=== PATIENT | female | born 1935 | race Caucasian/White ===

== ENCOUNTER 2021-10-31 10:45 | Outpatient (RCR) | payer MEDICARE, MEDICAID, SELFPAY ==
[2021-10-10 10:04] VITALS: BP 125/43; PULSE 55; TEMP 35.8; BMI 33.8
--- NOTE | 2021-10-10 14:36 | HP.PCM_ITS ---
History of Present Illness Date of Service: 10/10/21 Chief Complaint: Puncture wound, left pretibial area History of Wound: This is an 86-year-old obese female with multiple pre-existing medical problems. Approximately 1 month ago, the patient suffered a traumatic injury on the left pretibial area as result of impacting her rocking chair on September 10, 2021. She sustained a wound on the left pretibial area, and presented to the emergency department at [facility] in [place], [place]. In the emergency room, sutures were placed, and the patient was discharged. Her course thereafter has been somewhat fraught with complications. Approximately 2 weeks following her injury, the traumatic wound dehisced. The initial sutures which had been placed were absorbable. The patient has developed cellulitis in the area and has been treated with 2 courses of oral antibiotics, including doxycycline and cephalexin. She is also spent 2 days in the hospital in [place] in treatment for her cellulitis, with MRSA having been identified. The patient sleeps flat at night. However, during the daytime she is not very active. She does not ambulate liberally, requiring a walker for mobility. She spends a great deal of each day sitting idly. She experiences daily swelling in her lower extremities, which is most pronounced late in the day. [facility] Medical History (Updated 10/10/21 @ 14:[address] Mina Richey MD) Carotid stenosis Chronic renal insufficiency, stage IV (severe) Cirrhosis COPD (chronic obstructive pulmonary disease) Coronary artery disease Debility Dependent edema Limited mobility Obesity (BMI 30.0-34.9) Osteopenia determined by x-ray Puncture wound of left lower extremity Secondary hyperparathyroidism Tonsillectomy planned Tubal ligation evaluation Home Medications All Day Allergy (cetirizine) 10 mg PO DAILY 06/09/14 [History Last Taken Unknown] Augmented Betamethasone Lotion 1 applicatio TOPICAL DAILY 06/09/14 [History Last Taken Unknown] bupropion HCl 450 mg PO DAILY 06/09/14 [History Last Taken Unknown] cefuroxime axetil 250 mg PO BID 06/09/14 [History Last Taken Unknown] cholecalciferol (vitamin D3) 2,000 unit PO DAILY 06/09/14 [History Last Taken U nknown] clonazepam 0.5 mg PO Q8H PRN PRN 06/09/14 [History Last Taken Unknown] fluticasone propion-salmeterol [Advair Diskus] 1 puff INHALATION BID 06/09/14 [History Last Taken 06/22/14 06:30] folic acid 1 mg PO DAILY@0800 06/09/14 [History Last Taken Unknown] furosemide 40 mg PO DAILY 06/09/14 [History Last Taken Unknown] insulin glargine [Lantus Solostar U-100 Insulin] 38 units SUBCUT QHS 06/09/14 [History Last Taken Unknown] insulin glargine [Lantus Solostar U-100 Insulin] 42 units SUBCUT BREAKFAST 06/09/14 [History Last Taken Unknown] insulin lispro [Humalog U-100 Insulin] 2 - 30 unit SQ TID 06/09/14 [History Last Taken Unknown] losartan 100 mg PO DAILY 06/09/14 [History Last Taken Unknown] methotrexate sodium 7.5 mg PO FOSTER 06/09/14 [History Last Taken Unknown] metoprolol tartrate 25 mg PO DAILY 06/09/14 [History Last Taken 06/22/14 06:30] potassium chloride [Klor-Con M20] 20 meq PO BID 06/09/14 [History Last Taken Unknown] pravastatin 80 mg PO DAILY 06/09/14 [History Last Taken Unknown] zolpidem 5 mg PO QHS PRN 06/09/14 [History Last Taken Unknown] aspirin 81 mg PO DAILY@0800 #1 06/25/14 [Rx Last Taken 06/17/14 21:00] diphenhydramine HCl [Banophen] 50 mg PO Q6H PRN PRN #30 capsule 06/25/14 [Rx Last Taken Unknown] rivaroxaban [Xarelto] 10 mg PO DAILY@0600 #10 tablet 06/25/14 [Rx Last Taken Unknown] tramadol 50 mg PO Q4H PRN PRN #80 tablet 06/25/14 [Rx Last Taken Unknown] acetaminophen 650 mg tablet,extended release 650 mg PO Q12H 12/01/20 [History Last Taken Unknown] albuterol sulfate 2.5 mg INHALATION Q6H 12/01/20 [History Last Taken Unknown] docusate calcium 240 mg capsule 240 mg PO DAILY 12/01/20 [History Last Taken Unknown] flash glucose sensor #1 ea 12/01/20 [History Last Taken Unknown] montelukast 10 mg tablet 10 mg PO DAILY 12/01/20 [History Last Taken Unknown] nifedipine 60 mg tablet,extended release 60 mg PO DAILY 12/01/20 [History Last Taken Unknown] nystatin 100,000 unit/gram topical cream 1 applic TOPICAL BID 12/01/20 [History Last Taken Unknown] pantoprazole 20 mg PO DAILY 10/10/21 [History Last Taken Unknown] potassium bicarb and chloride [Pot Bicarb-Pot Chloride(25mEq)] ea 10/10/21 [History Last Taken Unknown] Allergy/AdvReac Type Severity Reaction Status Date / Time adhesive Allergy Rash Verified 12/01/20 13:51 iodine Allergy Swelling Verified 12/01/20 13:51 latex Allergy Rash Verified 12/01/20 13:51 hydrocodone bitartrate AdvReac Nausea Verified 12/01/20 13:51 [From Vicodin] metformin AdvReac Other Verified 12/01/20 13:51 morphine AdvReac Itching Verified 12/01/20 13:51 Sulfa (Sulfonamide AdvReac Nausea/Vom/ Verified 12/01/20 13:51 Antibiotics) Diarrhea Family History Other Asthma CVA (cerebral vascular accident) Colon cancer Diabetes Heart disease High cholesterol Hypertension Kidney disease Kidney stones Lupus Osteoporosis Seizures Skin cancer Thyroid disorder Ulcer Surgical History H/O knee surgery no surgical history (Patient has a history of bilateral knee replacement surgery, tonsillectomy, and tubal ligation.) Social History Smoking Status: Former smoker Vital Signs Vital Signs Vital Signs: 10/10/21 10:04 Temperature 96.4 F L Temperature Source Temporal Pulse Rate 55 L Blood Pressure 125/43 H Blood Pressure Mean 70 Blood Pressure Source Monitor Weight Weight: 191 lb Body Mass Index (BMI) 33.8 Physical Exam Const alert, oriented x3, no apparent distress and well nourished Constitutional Narrative: Patient appears obese. General Appearance: cooperative, comfortable, well kempt and well developed Orientation / Consciousness: awake, oriented to person, oriented to place and oriented to time HEENT normocephalic, head/scalp atraumatic and hearing grossly normal bilaterally Head and Scalp: normal to inspection, normocephalic and atraumatic External Ear: external ears normal Eyes PERRL and EOMs intact bilaterally General Eye: normal appearance of both eyes Resp normal respiratory effort, normal air movement, no retractions and no use of accessory muscles Effort and Inspection: able to speak in complete sentences Extremity no calf tenderness General Extremity: Negative for clubbing or cyanosis Skin Wound Narrative: Moderate swelling and edema are noted in the patient's lower extremities bilaterally. Additionally, inflammatory erythema is noted in the lower extremities bilaterally. The patient's traumatic wound is noted on the left pretibial area. Dimensions are documented elsewhere. There is a moderate amount of bioburden. Neuro oriented x3, CN's II-XII intact bilaterally and moves all extremities Sensorium / Orientation: awake, alert, oriented to person, oriented to place and oriented to time Psych Appearance: grossly normal and appropriate Attitude: calm Activity / Motor Behavior: appropriate eye contact Speech: normal speech Mood & Affect: euthymic mood Thought Process: normal thought process Thought Content: normal thought content Attention / Concentration: attention grossly intact Debridement Note Debridement Note Wound debrided: Left pretibial area Laterality: Left Type of Debridement: Excisional debridement Anesthesia Used: 5% Lidocaine Gel Depth: Down to and including healthy tissue and in the subcutaneous layer Percentage of wound debrided: 100 Instrument Used: 5mm curette Tissue Removed: Bioburden Severity: Fat Layer Exposed Amount of bleeding with debridement: Mild Bleeding Controlled with: Compression and gauze Patient tolerated procedure: Patient tolerated procedure well Post-Debridement Measurements and Additional Note: Post-Debridement Measurements/Treatment - Nurse 1 - General Ulcer Assessment Start: 10/10/21 08:19 Freq: Status: Active Protocol: [email or web address].[email or web address] Activity Type Activity Date Activity User E-Sign Co-Sign Detail Recorded Client Recorded Date Recorded By Document 10/10/21 10:04 DILLAN [id number] 10/10/21 10:25 DILLAN 10/10/21 10:04 - Today's Visit Information Type of service Initial Visit Arrival Mode Ambulatory, Walker Patient Identification Verified (Name & Yes ) Patient Requires Transmission-Based No Precautions Safety Precautions NA Finger Stick Blood Sugar(mg/dl) (if 131 indicated): Blood Sugar Stated by Patient Height and Weight Height 5 ft 3 in Weight 191 lb Weight in Pounds 191.0 lbs Weight Measurement Method Estimated by Patient Body Mass Index (BMI) 33.8 BMI Classification Obese BSA - Scott 1.90 Vital Signs Temperature (97.8 F-99.1 F) 96.4 F L Temperature Source Temporal Pulse Rate (60-100) 55 L Pulse Location Monitor Blood Pressure (90/60-120/80) 125/43 H Blood Pressure Mean 70 Source Monitor History Since Last Visit- (Skip if this is Patient's initial visit) Left Footwear Regular Shoe Right Footwear Regular Shoe Pain Scale: 0-10 Numeric Is Patient Pain Free? Yes WC - Nurse 1 - General Ulcer Measurement Start: 10/10/21 08:19 Freq: Status: Active Protocol: Activity Type Activity Date Activity User E-Sign Co-Sign Detail Recorded Client Recorded Date Recorded By Document 10/10/21 10:04 DILLAN [id number] 10/10/21 10:25 DILLAN 10/10/21 10:04 Wound Center Nurse 1 #1 Left mary -Current Size (cm) - Length 2.9 -Current Size (cm) - Width 1.7 -Current Size (cm) - Depth 1 -Total Square Cm 4.93 -Date of Last Picture (Recall this 10/10/21 field) -Photo Taken Yes -Epithelialization None Present -Tunneling No -Undermining/Tunneling No -Circular Undermining No -Exudate Amt Medium -Exudate Type Serosanguineous -Wound Margin Distinct, Outline Attached -Granulation Amt None Present (0 %) -Granulation Quality N/A -Slough/Fibrin Yes -Necrosis Amt Medium (34-66%) -Necrotic Tissue Type Adherent Slough -Structure Exposed N/A -Texture (Sis-wound Skin Appearance) Assessed, Localized Edema -Moisture (Sis-wound Skin Appearance) No Abnormality, Assessed -Color (Sis-wound Skin Appearance) Assessed, Erythema,Rubor -Temperature (Sis-wound Skin No Abnormality Appearance) (Pt Warm) -Tenderness on Palpation (Sis-wound No Skin Appearance) -Ulcer Cleansing Rinsed/ Irrigated with Saline -Foul Odor after Cleansing No -Anesthetic Used 5% Lidocaine Gel Right Calf (cm) 42 Right Ankle (cm) 24.5 Left Calf (cm) 40 Left Ankle (cm) 23.2 WC - Nurse 2 - General Ulcer CM Notes Start: 10/10/21 08:19 Freq: Status: Active Protocol: Activity Type Activity Date Activity User E-Sign Co-Sign Detail Recorded Client Recorded Date Recorded By Document 10/10/21 12:30 PL [id number] 10/10/21 12:31 PL 10/10/21 12:30 Wound Center Nurse 2 #1 Left mary -Time 10:50 -Correct Patient Yes -Correct Side, Site, Position Yes -Correct Procedure Yes -Procedure Performed Yes -Type of Procedure Debridement -Clinical Debridement Subcutaneous -Tissue Removed Subcutaneous -Post Debridement (cm) - Length 2.9 -Post Debridement (cm) - Width 1.7 -Post Debridement (cm) - Depth 1.0 -Total Square (Post) (cm) 4.93 -Area of Debridement (cm) - Length 2.9 -Area of Debridement (cm) - Width 1.7 -Total Square (Area) (cm) 4.93 -Tunneling No -Undermining/Tunneling No -Circular Undermining No -Wound/Ulcer Outcome Not Healed -Ulcer Cleansing Rinsed/ Irrigated with Saline -Foul Odor after Cleansing No -Bioengineered Tissue No -Bleeding Controlled with Pressure -Treatment Response Procedure Tolerated Well -Debridement - Subq, 1st 20sq cm Yes Pain Scale: 0-10 Numeric Is Patient Pain Free? Yes - Nurse 3 - General Ulcer D/C NN Start: 10/10/21 08:19 Freq: Status: Active Protocol: Activity Type Activity Date Activity User E-Sign Co-Sign Detail Recorded Client Recorded Date Recorded By Document 10/10/21 11:30 AK [id number] 10/10/21 11:32 AK 10/10/21 11:30 Wound Care Nurse 3 #1 Left mary -Ulcer Cleansing Rinsed/ Irrigated with Saline -Foul Odor after Cleansing No -Negative Pressure Wound Therapy N/A -Primary Dressing Applied Aquacel AG 4x4 -Primary Dressing Covered/Secured with Dry Gauze & Roll Gauze, Secured with Tape -Aquacel AG 4x4 1 Pain Scale: 0-10 Numeric Is Patient Pain Free? Yes WC - Visit Discharge Discharge Condition Stable Ambulatory Status Ambulatory, Walker Transportation Private Auto Accompanied by aid Medication Reconcilliation completed & Yes provided to patient/care provider Clinical Summary of Care Provided Yes Assessment/Plan Assessment/Plan (1) Puncture wound of left lower extremity: CODE(S): S81.832A - Puncture wound without foreign body, left lower leg, initial encounter (2) Diabetes mellitus, type II: CODE(S): E11.9 - Type 2 diabetes mellitus without complications (3) Dependent edema: CODE(S): R60.9 - Edema, unspecified (4) Limited mobility: CODE(S): Z74.09 - Other reduced mobility (5) Debility: CODE(S): R53.81 - Other malaise (6) Chronic renal insufficiency, stage IV (severe): CODE(S): N18.4 - Chronic kidney disease, stage 4 (severe) (7) Cirrhosis: CODE(S): K74.60 - Unspecified cirrhosis of liver QUALIFIERS: Hepatic cirrhosis type: unspecified hepatic cirrhosis Ascites presence: unspecified Qualified Code(s): K74.60 - Unspecified cirrhosis of liver (8) Osteopenia determined by x-ray: CODE(S): M85.80 - Other specified disorders of bone density and structure, unspecified site (9) Secondary hyperparathyroidism: CODE(S): N25.81 - Secondary hyperparathyroidism of renal origin (10) Hypertension: CODE(S): I10 - Essential (primary) hypertension (11) Psoriasis: CODE(S): L40.9 - Psoriasis, unspecified (12) Hyperlipidemia: CODE(S): E78.5 - Hyperlipidemia, unspecified (13) Arthritis: CODE(S): M19.90 - Unspecified osteoarthritis, unspecified site (14) Asthma: CODE(S): J45.909 - Unspecified asthma, uncomplicated (15) Obesity (BMI 30.0-34.9): CODE(S): E66.9 - Obesity, unspecified (16) Coronary artery disease: CODE(S): I25.10 - Atherosclerotic heart disease of [place] coronary artery without angina pectoris (17) COPD (chronic obstructive pulmonary disease): CODE(S): J44.9 - Chronic obstructive pulmonary disease, unspecified (18) Carotid stenosis: CODE(S): I65.29 - Occlusion and stenosis of unspecified carotid artery PLAN: This is an 86-year-old female who presents as result of a traumatic wound on the left pretibial area. This resulted due to trauma from a rocking chair approximately 1 month ago. At the time of the initial injury, the patient was evaluated in the emergency department, where stitches were placed. The absorbable sutures which were used for closure subsequently dissolved, and the traumatic wound has dehisced. She now presents with an open wound. She has had several episodes of cellulitis, with MRSA having been identified by wound culture. She has been treated by means of oral cephalexin and doxycycline. She is relatively immobile, limited in ambulation, and requiring a walker for mob ility. She sleeps on a flat mattress at night, but spends long hours each day in a sitting position. As result, patient experiences swelling in both lower extremities, which is most severe late each day. At her presentation today, swelling and edema are noted, with a generalized inflammatory erythema noted in the gaiter areas bilaterally. We have obtained swab cultures for aerobic and anaerobic bacterial growth, and culture results will be awaited. Patient has been instructed to elevate her lower extremities as much as possible, even during daytime hours. Elevation is to be to heart level, or higher. Prolonged idle sitting has been discouraged. Activity has been encouraged, but the patient's debility will limit the amount of ambulation which can be achieved. We are to implement compression to the lower extremities by means of double Tubigrip's, which will be applied by the patient, friends, and home health nursing staff on a daily basis. The patient has been instructed to optimize her nutritional intake, and to optimize her glycemic control. She has had a battery of diagnostic laboratory tests recently in [place], and those lab results will be requested and reviewed once obtained. A noninvasive lower extremity arterial study will also be ordered, to assess arterial perfusion in the lower extremities, which will determine whether there may be impediments to wound healing. We are to implement the use of Aquacel silver topically, which will be applied on a daily basis. The patient is to return in 1 week for reassessment. Total time: 65 minutes
[2021-10-17 13:14] VITALS: BP 120/55; PULSE 55; RESP 18; TEMP 35.7; BMI 33.8
--- NOTE | 2021-10-17 13:43 | PCM.WC.HP ---
History of Present Illness Date of Service: 10/17/21 Chief Complaint: Puncture wound, left pretibial area History of Wound: This is an 86-year-old obese female with multiple pre-existing medical problems. Approximately 1 month ago, the patient suffered a traumatic injury on the left pretibial area as result of impacting her rocking chair on September 10, 2021. She sustained a wound on the left pretibial area, and presented to the emergency department at [facility] in [place], [place]. In the emergency room, sutures were placed, and the patient was discharged. Her course thereafter has been somewhat fraught with complications. Approximately 2 weeks following her injury, the traumatic wound dehisced. The initial sutures which had been placed were absorbable. The patient has developed cellulitis in the area and has been treated with 2 courses of oral antibiotics, including doxycycline and cephalexin. She is also spent 2 days in the hospital in [place] in treatment for her cellulitis, with MRSA having been identified. The patient sleeps flat at night. However, during the daytime she is not very active. She does not ambulate liberally, requiring a walker for mobility. She spends a great deal of each day sitting idly. She experiences daily swelling in her lower extremities, which is most pronounced late in the day. [facility] Medical History (Updated 10/17/21 @ 13:[address] Mina Richey MD) Carotid stenosis Chronic renal insufficiency, stage IV (severe) Cirrhosis COPD (chronic obstructive pulmonary disease) Coronary artery disease Debility Dependent edema Edema of lower extremity Limited mobility Obesity (BMI 30.0-34.9) Osteopenia determined by x-ray Puncture wound of left lower extremity Secondary hyperparathyroidism Swelling of lower extremity Tonsillectomy planned Tubal ligation evaluation Home Medications All Day Allergy (cetirizine) 10 mg PO DAILY 06/09/14 [History Last Taken Unknown] Augmented Betamethasone Lotion 1 applicatio TOPICAL DAILY 06/09/14 [History Last Taken Unknown] bupropion HCl 450 mg PO DAILY 06/09/14 [History Last Taken Unknown] cefuroxime axetil 250 mg PO BID 06/09/14 [History Last Taken Unknown] cholecalciferol (vitamin D3) 2,000 unit PO DAILY 06/09/14 [History Last Taken Unknown] clonazepam 0.5 mg PO Q8H PRN PRN 06/09/14 [History Last Taken Unknown] fluticasone propion-salmeterol [Advair Diskus] 1 puff INHALATION BID 06/09/14 [History Last Taken 06/22/14 06:30] folic acid 1 mg PO DAILY@0800 06/09/14 [History Last Taken Unknown] furosemide 40 mg PO DAILY 06/09/14 [History Last Taken Unknown] insulin glargine [Lantus Solostar U-100 Insulin] 38 units SUBCUT QHS 06/09/14 [History Last Taken Unknown] insulin glargine [Lantus Solostar U-100 Insulin] 42 units SUBCUT BREAKFAST 06/09/14 [History Last Taken Unknown] insulin lispro [Humalog U-100 Insulin] 2 - 30 unit SQ TID 06/09/14 [History Last Taken Unknown] losartan 100 mg PO DAILY 06/09/14 [History Last Taken Unknown] methotrexate sodium 7.5 mg PO FOSTER 06/09/14 [History Last Taken Unknown] metoprolol tartrate 25 mg PO DAILY 06/09/14 [History Last Taken 06/22/14 06:30] potassium chloride [Klor-Con M20] 20 meq PO BID 06/09/14 [History Last Taken Unknown] pravastatin 80 mg PO DAILY 06/09/14 [History Last Taken Unknown] zolpidem 5 mg PO QHS PRN 06/09/14 [History Last Taken Unknown] aspirin 81 mg PO DAILY@0800 #1 06/25/14 [Rx Last Taken 06/17/14 21:00] diphenhydramine HCl [Banophen] 50 mg PO Q6H PRN PRN #30 capsule 06/25/14 [Rx Last Taken Unknown] rivaroxaban [Xarelto] 10 mg PO DAILY@0600 #10 tablet 06/25/14 [Rx Last Taken Unknown] tramadol 50 mg PO Q4H PRN PRN #80 tablet 06/25/14 [Rx Last Taken Unknown] acetaminophen 650 mg tablet,extended release 650 mg PO Q12H 12/01/20 [History Last Taken Unknown] albuterol sulfate 2.5 mg INHALATION Q6H 12/01/20 [History Last Taken Unknown] docusate calcium 240 mg capsule 240 mg PO DAILY 12/01/20 [History Last Taken Unknown] flash glucose sensor #1 ea 12/01/20 [History Last Taken Unknown] montelukast 10 mg tablet 10 mg PO DAILY 12/01/20 [History Last Taken Unknown] nifedipine 60 mg tablet,extended release 60 mg PO DAILY 12/01/20 [History Last Taken Unknown] nystatin 100,000 unit/gram topical cream 1 applic TOPICAL BID 12/01/20 [History Last Taken Unknown] pantoprazole 20 mg PO DAILY 10/10/21 [History Last Taken Unknown] potassium bicarb and chloride [Pot Bicarb-Pot Chloride(25mEq)] ea 10/10/21 [History Last Taken Unknown] Allergy/AdvReac Type Severity Reaction Status Date / Time adhesive Allergy Rash Verified 12/01/20 13:51 iodine Allergy Swelling Verified 12/01/20 13:51 latex Allergy Rash Verified 12/01/20 13:51 hydrocodone bitartrate AdvReac Nausea Verified 12/01/20 13:51 [From Vicodin] metformin AdvReac Other Verified 12/01/20 13:51 morphine AdvReac Itching Verified 12/01/20 13:51 Sulfa (Sulfonamide AdvReac Nausea/Vom/ Verified 12/01/20 13:51 Antibiotics) Diarrhea Family History Other Asthma CVA (cerebral vascular accident) Colon cancer Diabetes Heart disease High cholesterol Hypertension Kidney disease Kidney stones Lupus Osteoporosis Seizures Skin cancer Thyroid disorder Ulcer Surgical History H/O knee surgery Surgical History no surgical history Social History Smoking Status: Former smoker Vital Signs Vital Signs Vital Signs: 10/17/21 13:14 Temperature 96.2 F L Temperature Source Temporal Pulse Rate 55 L Respiratory Rate 18 Blood Pressure 120/55 L Blood Pressure Mean 76 Blood Pressure Source Monitor Blood Pressure Position Sitting Blood Pressure Location Left Arm Oxygen Delivery Method Room Air Weight Weight: 191 lb Body Mass Index (BMI) 33.8 Physical Exam Const alert, oriented x3, no apparent distress and well nourished Constitutional Narrative: The patient is obese. General Appearance: cooperative, comfortable, well kempt and well developed Orientation / Consciousness: awake, oriented to person, oriented to place and oriented to time HEENT normocephalic and head/scalp atraumatic Head and Scalp: normal to inspection, normocephalic and atraumatic External Ear: external ears normal Eyes PERRL and EOMs intact bilaterally General Eye: normal appearance of both eyes Resp normal respiratory effort, normal air movement, no retractions and no use of accessory muscles Effort and Inspection: able to speak in complete sentences and symmetric chest movement Extremity no calf tenderness General Extremity: Negative for clubbing or cyanosis Skin Wound Narrative: Swelling and edema persists bilaterally in the patient's lower extremities. Surface irregularities are present, consistent with the presence of edema. The puncture wound on the left pretibial area persists. There is a moderate amount of bioburden. There is no sign of infection or cellulitis. Dimensions are documented elsewhere. Neuro oriented x3, CN's II-XII intact bilaterally and moves all extremities Sensorium / Orientation: awake, alert, oriented to person, oriented to place and oriented to time Psych Appearance: grossly normal and appropriate Attitude: calm Activity / Motor Behavior: appropriate eye contact Speech: normal speech Mood & Affect: euthymic mood Thought Process: normal thought process Thought Content: normal thought content Attention / Concentration: attention grossly intact Debridement Note Debridement Note Wound debrided: Left pretibial surface Laterality: Left Type of Debridement: Excisional debridement Anesthesia Used: 5% Lidocaine Gel Depth: Down to and including healthy tissue and in the subcutaneous layer Percentage of wound debrided: 100 Instrument Used: 3mm curette Tissue Removed: Bioburden Severity: Fat Layer Exposed Amount of bleeding with debridement: Mild Bleeding Controlled with: Compression and gauze Patient tolerated procedure: Patient tolerated procedure well Post-Debridement Measurements and Additional Note: Post-Debridement Measurements/Treatment - Nurse 1 - General Ulcer Assessment Start: 10/10/21 08:19 Freq: Status: Active Protocol: AJIT Activity Type Activity Date Activity User E-Sign Co-Sign Detail Recorded Client Recorded Date Recorded By Document 10/10/21 10:04 [place] [id number] 10/10/21 10:25 [place] Document 10/17/21 13:14 [facility] [id number] 10/17/21 13:20 BM 10/10/21 10/17/21 10:04 13:14 - Today's Visit Information Type of service Initial Visit Follow-up Visit (Physician/CHESS INSTRUCTOR ) Arrival Mode Ambulatory, Ambulatory, Walker Walker Transfer Assistance None Accompanied by FRIEND Patient Identification Verified (Name & Yes Yes ) Patient Requires Transmission-Based No No Precautions Safety Precautions NA Finger Stick Blood Sugar(mg/dl) (if 131 indicated): Blood Sugar Stated by Patient Height and Weight Height 5 ft 3 in Weight 191 lb Weight in Pounds 191.0 lbs Weight Measurement Method Estimated by Patient Body Mass Index (BMI) 33.8 33.8 BMI Classification Obese Obese BSA - Scott 1.90 Vital Signs Temperature (97.8 F-99.1 F) 96.4 F L 96.2 F L Temperature Source Temporal Temporal Pulse Rate (60-100) 55 L 55 L Pulse Location Monitor Monitor Respiratory Rate (12-18) 18 Respiratory rate source Observation Oxygen Delivery Method Room Air Blood Pressure (90/60-120/80) 125/43 H 120/55 L Blood Pressure Mean 70 76 Source Monitor Monitor Position Sitting Blood Pressure Location Left Arm Have you changed medications since your No last visit? Any new allergies or adverse reactions No Had a fall/change in ADL's that may No increase risk of falls Signs or symptoms of abuse and/or No neglect since last visit Have you been in the hospital since your No last visit? Has dressing in place as prescribed Yes Has compression in place as prescribed N/A Has offloadiing in place as prescribed N/A Experienced any changes in pain level or No management History Since Last Visit- (Skip if this is Patient's initial visit) Left Footwear Regular Shoe Regular Shoe Right Footwear Regular Shoe Regular Shoe Pain Scale: 0-10 Numeric Is Patient Pain Free? Yes Yes WC - Nurse 1 - General Ulcer Measurement Start: 10/10/21 08:19 Freq: Status: Active Protocol: Activity Type Activity Date Activity User E-Sign Co-Sign Detail Recorded Client Recorded Date Recorded By Document 10/10/21 10:04 [place] [id number] 10/10/21 10:25 [place] Document 10/17/21 13:14 [facility] [id number] 10/17/21 13:20 [facility] 10/10/21 10/17/21 10:04 13:14 Wound Center Nurse 1 #1 Left mary -Combined with other wound No -Current Size (cm) - Length 2.9 2.4 -Current Size (cm) - Width 1.7 0.5 -Current Size (cm) - Depth 1 0.3 -Total Square Cm 4.93 1.20 -Date of Last Picture (Recall this 10/10/21 field) -Photo Taken Yes No -Epithelialization None Present None Present -Tunneling No No -Undermining/Tunneling No No -Circular Undermining No No -Exudate Amt Medium Small -Exudate Type Serosanguineous Serous -Wound Margin Distinct, Distinct, Outline Outline Attached Attached -Granulation Amt None Present (0 Small (1-33%) %) -Granulation Quality N/A Red -Slough/Fibrin Yes Yes -Necrosis Amt Medium (34-66%) Large (67-100%) -Necrotic Tissue Type Adherent Slough Adherent Slough -Structure Exposed N/A -Texture (Sis-wound Skin Appearance) Assessed, Assessed Localized Edema -Moisture (Sis-wound Skin Appearance) No Abnormality, Assessed, Assessed Maceration -Color (Sis-wound Skin Appearance) Assessed, Assessed, Erythema,Rubor Erythema,Palor -Temperature (Sis-wound Skin No Abnormality No Abnormality Appearance) (Pt Warm) (Pt Warm) -Tenderness on Palpation (Sis-wound No No Skin Appearance) -Ulcer Cleansing Rinsed/ Soap and Water Irrigated with Saline -Foul Odor after Cleansing No No -Anesthetic Used 5% Lidocaine 5% Lidocaine Gel Gel Lower Limb Edema Present Yes Right Calf (cm) 42 Right Ankle (cm) 24.5 Left Calf (cm) 40 39.4 Left Ankle (cm) 23.2 23 WC - Nurse 2 - General Ulcer CM Notes Start: 10/10/21 08:19 Freq: Status: Active Protocol: Activity Type Activity Date Activity User E-Sign Co-Sign Detail Recorded Client Recorded Date Recorded By Document 10/10/21 12:30 PL [id number] 10/10/21 12:31 PL 10/10/21 12:30 Wound Center Nurse 2 #1 Left mary -Time 10:50 -Correct Patient Yes -Correct Side, Site, Position Yes -Correct Procedure Yes -Procedure Performed Yes -Type of Procedure Debridement -Clinical Debridement Subcutaneous -Tissue Removed Subcutaneous -Post Debridement (cm) - Length 2.9 -Post Debridement (cm) - Width 1.7 -Post Debridement (cm) - Depth 1.0 -Total Square (Post) (cm) 4.93 -Area of Debridement (cm) - Length 2.9 -Area of Debridement (cm) - Width 1.7 -Total Square (Area) (cm) 4.93 -Tunneling No -Undermining/Tunneling No -Circular Undermining No -Wound/Ulcer Outcome Not Healed -Ulcer Cleansing Rinsed/ Irrigated with Saline -Foul Odor after Cleansing No -Bioengineered Tissue No -Bleeding Controlled with Pressure -Treatment Response Procedure Tolerated Well -Debridement - Subq, 1st 20sq cm Yes Pain Scale: 0-10 Numeric Is Patient Pain Free? Yes - Nurse 3 - General Ulcer D/C NN Start: 10/10/21 08:19 Freq: Status: Active Protocol: Activity Type Activity Date Activity User E-Sign Co-Sign Detail Recorded Client Recorded Date Recorded By Document 10/10/21 11:30 DILLAN [id number] 10/10/21 11:32 DILLAN 10/10/21 11:30 Wound Care Nurse 3 #1 Left mary -Ulcer Cleansing Rinsed/ Irrigated with Saline -Foul Odor after Cleansing No -Negative Pressure Wound Therapy N/A -Primary Dressing Applied Aquacel AG 4x4 -Primary Dressing Covered/Secured with Dry Gauze & Roll Gauze, Secured with Tape -Aquacel AG 4x4 1 Pain Scale: 0-10 Numeric Is Patient Pain Free? Yes - Visit Discharge Discharge Condition Stable Ambulatory Status Ambulatory, Walker Transportation Private Auto Accompanied by aid Medication Reconcilliation completed & Yes provided to patient/care provider Clinical Summary of Care Provided Yes Lab / Micro Data Micro: Microbiology 10/10/21 11:00 Wound Abcess - Leg, Left Gram Stain - Final 10/10/21 11:00 Wound Abcess - Leg, Left Wound Culture - Final No growth aerobically. 10/10/21 11:00 Wound Abcess - Leg, Left Anaerobic Culture - Preliminary No growth in 48 hours. Assessment/Plan Assessment/Plan (1) Puncture wound of left lower extremity: CODE(S): S81.832A - Puncture wound without foreign body, left lower leg, initial encounter (2) Debility: CODE(S): R53.81 - Other malaise (3) Limited mobility: CODE(S): Z74.09 - Other reduced mobility (4) Swelling of lower extremity: CODE(S): M79.89 - Other specified soft tissue disorders (5) Edema of lower extremity: CODE(S): R60.0 - Localized edema (6) Carotid stenosis: CODE(S): I65.29 - Occlusion and stenosis of unspecified carotid artery (7) Chronic renal insufficiency, stage IV (severe): CODE(S): N18.4 - Chronic kidney disease, stage 4 (severe) (8) Dependent edema: CODE(S): R60.9 - Edema, unspecified (9) COPD (chronic obstructive pulmonary disease): CODE(S): J44.9 - Chronic obstructive pulmonary disease, unspecified (10) Coronary artery disease: CODE(S): I25.10 - Atherosclerotic heart disease of [place] coronary artery without angina pectoris (11) Obesity (BMI 30.0-34.9): CODE(S): E66.9 - Obesity, unspecified (12) Cirrhosis: CODE(S): K74.60 - Unspecified cirrhosis of liver QUALIFIERS: Hepatic cirrhosis type: unspecified hepatic cirrhosis Ascites presence: unspecified Qualified Code(s): K74.60 - Unspecified cirrhosis of liver (13) Osteopenia determined by x-ray: CODE(S): M85.80 - Other specified disorders of bone density and structure, unspecified site (14) Secondary hyperparathyroidism: CODE(S): N25.81 - Secondary hyperparathyroidism of renal origin (15) Hypertension: CODE(S): I10 - Essential (primary) hypertension (16) Psoriasis: CODE(S): L40.9 - Psoriasis, unspecified (17) Hyperlipidemia: CODE(S): E78.5 - Hyperlipidemia, unspecified (18) Arthritis: CODE(S): M19.90 - Unspecified osteoarthritis, unspecified site (19) Diabetes mellitus, type II: CODE(S): E11.9 - Type 2 diabetes mellitus without complications (20) Morbid obesity with BMI of 40.0-44.9, adult: CODE(S): E66.01 - Morbid (severe) obesity due to excess calories; Z68.41 - Body mass index [BMI] 40.0-44.9, adult (21) Asthma: CODE(S): J45.909 - Unspecified asthma, uncomplicated PLAN: This is an 86-year-old female who presents as result of a traumatic wound on the left pretibial area. This resulted due to trauma from a rocking chair approximately 1 month ago. At the time of the initial injury, the patient was evaluated in the emergency department, where stitches were placed. The absorbable sutures which were used for closure subsequently dissolved, and the traumatic wound has dehisced. She now presents with an open wound. She has had several episodes of cellulitis, with MRSA having been identified by wound culture. She has been treated by means of oral cephalexin and doxycycline. Her recent wound culture, obtained on October 10, 2021, was negative for aerobic and anaerobic bacteria growth. She is relatively immobile, limited in ambulation, and requires a walker for mobility. She sleeps on a flat mattress at night, but spends long hours each day in a sitting position. As result, patient experiences swelling in both lower extremities, which is most severe late each day. At her presentation today, swelling and edema are noted, with a generalized inflammatory erythema noted in the gaiter areas bilaterally. The patient has been instructed to elevate her lower extremities as much as possible, even during daytime hours. Elevation is to be to heart level, or higher. Prolonged idle sitting has been discouraged. Activity has been encouraged, but the patient's debility will limit the amount of ambulation which can be achieved. We have implemented compression to the lower extremities by means of double Tubigrip's, which are to be applied by the patient, friends, and home health nursing staff on a daily basis. The patient has been instructed to optimize her nutritional intake, and to optimize her glycemic control. She has had a battery of diagnostic laboratory tests recently in [place], and those lab results will be requested and reviewed once obtained. A noninvasive lower extremity arterial study will also be ordered, to assess arterial perfusion in the lower extremities, which will determine whether there may be impediments to wound healing. We are to continue the use of Aquacel silver topically, which will be applied on a daily basis. The patient is to return in 1 week for reassessment. Thus far, it appears as though the patient has been noncompliant with recommended measures to elevate her lower extremities and to avoid prolonged idle sitting. As result, there has been very little improvement in the swelling and edema in her lower extremities. In part, this is due to a lack of resources and assistance on the patient's behalf. Having moved from [place], the patient has very few friends in this area. She has had no children, so has no family members who are able to provide her assistance, given her limited mobility. Home health nursing is involved, but only twice weekly. We are to continue collaboration with her home health nursing staff in an effort to provide the patient the best assistance possible. Total time: 29 minutes
--- NOTE | 2021-10-27 13:49 | ART_ITS ---
Reason For Study: Nonhealing wound Procedure A bilateral lower extremity continuous wave Doppler with analog waveform analysis,segmental pressures,and ankle brachial indexes without exercise. Left Segmental Pressures Left brachial= 154mmHg. Left posterior tibial artery = 164mmHg. Left dorsalis pedis artery = >254mmHg. Left digit = 81 mmHg. The left dorsalis pedis waveforms are biphasic. The left posterior tibial artery waveforms are biphasic. Right Segmental Pressures Right posterior tibial artery = 209mmHg. Right dorsalis pedis artery = >254mmHg. Right digit = 107 mmHg. The right dorsalis pedis waveforms are biphasic. The right posterior tibial artery waveforms are biphasic. Indices The right ankle brachial index by the dorsalis pedis is NC. The right ankle brachial index by the posterior tibial artery is 1.36. The right digital-brachial index is 0.69. The left ankle brachial index by the dorsalis pedis is NC. The left ankle brachial index by the posterior tibial artery is 1.06. The left digital-brachial index is 0.53. VL/Lower Ext Art Exam w/o Exercis Interpretation Summary Biphasic Doppler waveforms are noted at ankle level bilaterally. Pulse-volume r ecordings appear satisfactory at all levels bilaterally, including low thigh, calf, ankle, and d igital levels. Resting ankle-brachial indices are normal bilaterally. Digital-brachial indices are mildly diminished bilaterally. Arterial flow appears normal at ankle level bilaterally. There is evidence of m ild arterial occlusive disease at digital level bilaterally. Ordering Physician: Mina Richey Referring Physician: Gina Lindsay Performed By: Cassandra Bravo RVT
[2021-10-31 11:08] VITALS: BP 138/74; PULSE 64; TEMP 35.7; BMI 33.8
--- NOTE | 2021-10-31 12:16 | HP.PCM_ITS ---
History of Present Illness Date of Service: 10/31/21 Chief Complaint: Puncture wound, left pretibial area History of Wound: This is an 86-year-old obese female with multiple pre-existing medical problems. Approximately 1 month ago, the patient suffered a traumatic injury on the left pretibial area as result of impacting her rocking chair on September 10, 2021. She sustained a wound on the left pretibial area, and presented to the emergency department at [facility] in [place], [place]. In the emergency room, sutures were placed, and the patient was discharged. Her course thereafter has been somewhat fraught with complications. Approximately 2 weeks following her injury, the traumatic wound dehisced. The initial sutures which had been placed were absorbable. The patient has developed cellulitis in the area and has been treated with 2 courses of oral antibiotics, including doxycycline and cephalexin. She is also spent 2 days in the hospital in [place] in treatment for her cellulitis, with MRSA having been identified. The patient sleeps flat at night. However, during the daytime she is not very active. She does not ambulate liberally, requiring a walker for mobility. She spends a great deal of each day sitting idly. She experiences daily swelling in her lower extremities, which is most pronounced late in the day. [facility] Medical History Carotid stenosis Chronic renal insufficiency, stage IV (severe) Cirrhosis COPD (chronic obstructive pulmonary disease) Coronary artery disease Debility Dependent edema Edema of lower extremity Limited mobility Obesity (BMI 30.0-34.9) Osteopenia determined by x-ray Puncture wound of left lower extremity Secondary hyperparathyroidism Swelling of lower extremity Tonsillectomy planned Tubal ligation evaluation Home Medications All Day Allergy (cetirizine) 10 mg PO DAILY 06/09/14 [History Last Taken Unknown] Augmented Betamethasone Lotion 1 applicatio TOPICAL DAILY 06/09/14 [History Last Taken Unknown] bupropion HCl 450 mg PO DAILY 06/09/14 [History Last Taken Unknown] cefuroxime axetil 250 mg PO BID 06/09/14 [History Last Taken Unknown] cholecalciferol (vitamin D3) 2,000 unit PO DAILY 06/09/14 [History Last Taken Unknown] clonazepam 0.5 mg PO Q8H PRN PRN 06/09/14 [History Last Taken Unknown] fluticasone propion-salmeterol [Advair Diskus] 1 puff INHALATION BID 06/09/14 [History Last Taken 06/22/14 06:30] folic acid 1 mg PO DAILY@0800 06/09/14 [History Last Taken Unknown] furosemide 40 mg PO DAILY 06/09/14 [History Last Taken Unknown] insulin glargine [Lantus Solostar U-100 Insulin] 38 units SUBCUT QHS 06/09/14 [History Last Taken Unknown] insulin glargine [Lantus Solostar U-100 Insulin] 42 units SUBCUT BREAKFAST 06/09/14 [History Last Taken Unknown] insulin lispro [Humalog U-100 Insulin] 2 - 30 unit SQ TID 06/09/14 [History Last Taken Unknown] losartan 100 mg PO DAILY 06/09/14 [History Last Taken Unknown] methotrexate sodium 7.5 mg PO FOSTER 06/09/14 [History Last Taken Unknown] metoprolol tartrate 25 mg PO DAILY 06/09/14 [History Last Taken 06/22/14 06:30] potassium chloride [Klor-Con M20] 20 meq PO BID 06/09/14 [History Last Taken Unknown] pravastatin 80 mg PO DAILY 06/09/14 [History Last Taken Unknown] zolpidem 5 mg PO QHS PRN 06/09/14 [History Last Taken Unknown] aspirin 81 mg PO DAILY@0800 #1 06/25/14 [Rx Last Taken 06/17/14 21:00] diphenhydramine HCl [Banophen] 50 mg PO Q6H PRN PRN #30 capsule 06/25/14 [Rx Last Taken Unknown] rivaroxaban [Xarelto] 10 mg PO DAILY@0600 #10 tablet 06/25/14 [Rx Last Taken Unknown] tramadol 50 mg PO Q4H PRN PRN #80 tablet 06/25/14 [Rx Last Taken Unknown] acetaminophen 650 mg tablet,extended release 650 mg PO Q12H 12/01/20 [History Last Taken Unknown] albuterol sulfate 2.5 mg INHALATION Q6H 12/01/20 [History Last Taken Unknown] docusate calcium 240 mg capsule 240 mg PO DAILY 12/01/20 [History Last Taken Unknown] flash glucose sensor #1 ea 12/01/20 [History Last Taken Unknown] montelukast 10 mg tablet 10 mg PO DAILY 12/01/20 [History Last Taken Unknown] nifedipine 60 mg tablet,extended release 60 mg PO DAILY 12/01/20 [History Last Taken Unknown] nystatin 100,000 unit/gram topical cream 1 applic TOPICAL BID 12/01/20 [History Last Taken Unknown] pantoprazole 20 mg PO DAILY 10/10/21 [History Last Taken Unknown] potassium bicarb and chloride [Pot Bicarb-Pot Chloride(25mEq)] ea 10/10/21 [History Last Taken Unknown] Allergy/AdvReac Type Severity Reaction Status Date / Time adhesive Allergy Rash Verified 12/01/20 13:51 iodine Allergy Swelling Verified 12/01/20 13:51 latex Allergy Rash Verified 12/01/20 13:51 hydrocodone bitartrate AdvReac Nausea Verified 12/01/20 13:51 [From Vicodin] metformin AdvReac Other Verified 12/01/20 13:51 morphine AdvReac Itching Verified 12/01/20 13:51 Sulfa (Sulfonamide AdvReac Nausea/Vom/ Verified 12/01/20 13:51 Antibiotics) Diarrhea Family History Other Asthma CVA (cerebral vascular accident) Colon cancer Diabetes Heart disease High cholesterol Hypertension Kidney disease Kidney stones Lupus Osteoporosis Seizures Skin cancer Thyroid disorder Ulcer Surgical History H/O knee surgery Surgical History no surgical history Social History Smoking Status: Former smoker Vital Signs Vital Signs Vital Signs: 10/31/21 11:08 Temperature 96.2 F L Temperature Source Temporal Pulse Rate 64 Blood Pressure 138/74 H Blood Pressure Mean 95 Blood Pressure Source Monitor Weight Weight: 191 lb Body Mass Index (BMI) 33.8 Physical Exam Const alert, oriented x3, no apparent distress and well nourished General Appearance: cooperative, comfortable, well kempt and well developed Orientation / Consciousness: awake, oriented to person, oriented to place and oriented to time Exam Limitations: no limitations HEENT normocephalic, head/scalp atraumatic and hearing grossly normal bilaterally Head and Scalp: normal to inspection, normocephalic and atraumatic External Ear: external ears normal Eyes PERRL and EOMs intact bilaterally General Eye: normal appearance of both eyes Resp normal respiratory effort, normal air movement, no retractions and no use of accessory muscles Effort and Inspection: able to speak in complete sentences and symmetric chest movement Extremity no clubbing, cyanosis or edema, no calf tenderness and no pedal edema General Extremity: Negative for clubbing or cyanosis Skin Wound Narrative: No significant swelling or edema are noted in the patient's left lower extremity. The wound on the left anterolateral calf persists, but is much smaller in size, and quite superficial. Dimensions are documented elsewhere. There is no sign of infection or cellulitis. There is a small amount of bioburden. Neuro oriented x3, CN's II-XII intact bilaterally and moves all extremities Sensorium / Orientation: awake, alert, oriented to person, oriented to place and oriented to time Psych Appearance: grossly normal and appropriate Attitude: calm Activity / Motor Behavior: appropriate eye contact Speech: normal speech Mood & Affect: euthymic mood Thought Process: normal thought process Thought Content: normal thought content Attention / Concentration: attention grossly intact Debridement Note Debridement Note Wound debrided: Left pretibial, anterolateral calf Laterality: Left Type of Debridement: Excisional debridement Anesthesia Used: 5% Lidocaine Gel Depth: Down to and including healthy tissue and in the subcutaneous layer Percentage of wound debrided: 100 Instrument Used: 3mm curette Tissue Removed: Bioburden Severity: Fat Layer Exposed Amount of bleeding with debridement: Mild Bleeding Controlled with: Compression and gauze Patient tolerated procedure: Patient tolerated procedure well Post-Debridement Measurements and Additional Note: Post-Debridement Measurements/Treatment - Nurse 1 - General Ulcer Assessment Start: 10/10/21 08:19 Freq: Status: Active Protocol: JOESPH.HUMAIRA Activity Type Activity Date Activity User E-Sign Co-Sign Detail Recorded Client Recorded Date Recorded By Document 10/10/21 10:04 LA [id number] 10/10/21 10:25 LA Document 10/17/21 13:14 [facility] [id number] 10/17/21 13:20 [facility] Document 10/31/21 11:08 LA [id number] 10/31/21 11:10 LA 10/10/21 10/17/21 10/31/21 10:04 13:14 11:08 WC - Today's Visit Information Type of service Initial Visit Follow-up Visit Follow-up Visit (Physician/SKIRT CLIPPER (Physician/SKIRT CLIPPER ) ) Arrival Mode Ambulatory, Ambulatory, Wheelchair Walker Walker Transfer Assistance None Accompanied by FRIEND Patient Identification Verified (Name & Yes Yes Yes ) Patient Requires Transmission-Based No No No Precautions Safety Precautions NA NA Finger Stick Blood Sugar(mg/dl) (if 131 indicated): Blood Sugar Stated by Patient Height and Weight Height 5 ft 3 in Weight 191 lb Weight in Pounds 191.0 lbs Weight Measurement Method Estimated by Patient Body Mass Index (BMI) 33.8 33.8 33.8 BMI Classification Obese Obese Obese BSA - Scott 1.90 Vital Signs Temperature (97.8 F-99.1 F) 96.4 F L 96.2 F L 96.2 F L Temperature Source Temporal Temporal Temporal Pulse Rate (60-100) 55 L 55 L 64 Pulse Location Monitor Monitor Monitor Respiratory Rate (12-18) 18 Respiratory rate source Observation Oxygen Delivery Method Room Air Blood Pressure (90/60-120/80) 125/43 H 120/55 L 138/74 H Blood Pressure Mean 70 76 95 Source Monitor Monitor Monitor Position Sitting Blood Pressure Location Left Arm Have you changed medications since your No No last visit? Any new allergies or adverse reactions No No Had a fall/change in ADL's that may No No increase risk of falls Signs or symptoms of abuse and/or No No neglect since last visit Have you been in the hospital since your No No last visit? Has dressing in place as prescribed Yes Yes Has compression in place as prescribed N/A Yes Has offloadiing in place as prescribed N/A N/A Experienced any changes in pain level or No No management History Since Last Visit- (Skip if this is Patient's initial visit) Left Footwear Regular Shoe Regular Shoe Regular Shoe Right Footwear Regular Shoe Regular Shoe Regular Shoe Pain Scale: 0-10 Numeric Is Patient Pain Free? Yes Yes Yes - Nurse 1 - General Ulcer Measurement Start: 10/10/21 08:19 Freq: Status: Active Protocol: Activity Type Activity Date Activity User E-Sign Co-Sign Detail Recorded Client Recorded Date Recorded By Document 10/10/21 10:04 DILLAN [id number] 10/10/21 10:25 [place] Document 10/17/21 13:14 [facility] [id number] 10/17/21 13:20 [facility] Document 10/31/21 11:08 LA [id number] 10/31/21 11:10 LA 10/10/21 10/17/21 10/31/21 10:04 13:14 11:08 Wound Center Nurse 1 #1 Left mary -Combined with other wound No No -Current Size (cm) - Length 2.9 2.4 2 -Current Size (cm) - Width 1.7 0.5 0.2 -Current Size (cm) - Depth 1 0.3 0.1 -Total Square Cm 4.93 1.20 0.4 -Date of Last Picture (Recall this 10/10/21 field) -Photo Taken Yes No No -Epithelialization None Present None Present -Tunneling No No No -Undermining/Tunneling No No No -Circular Undermining No No No -Change in Wound Grade/Stage No -Exudate Amt Medium Small Medium -Exudate Type Serosanguineous Serous Serosanguineous -Wound Margin Distinct, Distinct, Distinct, Outline Outline Outline Attached Attached Attached -Granulation Amt None Present (0 Small (1-33%) Small (1-33%) %) -Granulation Quality N/A Red N/A,Delton -Slough/Fibrin Yes Yes -Necrosis Amt Medium (34-66%) Large (67-100%) Small (1-33%) -Necrotic Tissue Type Adherent Slough Adherent Slough Adherent Slough -Structure Exposed N/A N/A -Texture (Sis-wound Skin Appearance) Assessed, Assessed No Abnormality, Localized Edema Assessed -Moisture (Sis-wound Skin Appearance) No Abnormality, Assessed, No Abnormality, Assessed Maceration Assessed -Color (Sis-wound Skin Appearance) Assessed, Assessed, No Abnormality, Erythema,Rubor Erythema,Palor Assessed -Temperature (Sis-wound Skin No Abnormality No Abnormality No Abnormality Appearance) (Pt Warm) (Pt Warm) (Pt Warm) -Tenderness on Palpation (Sis-wound No No No Skin Appearance) -Ulcer Cleansing Rinsed/ Soap and Water Rinsed/ Irrigated with Irrigated with Saline Saline -Foul Odor after Cleansing No No No -Anesthetic Used 5% Lidocaine 5% Lidocaine 4% Lidocaine Gel Gel Solution Lower Limb Edema Present Yes No Right Calf (cm) 42 Right Ankle (cm) 24.5 Left Calf (cm) 40 39.4 35 Left Ankle (cm) 23.2 23 23 WC - Nurse 2 - General Ulcer CM Notes Start: 10/10/21 08:19 Freq: Status: Active Protocol: Activity Type Activity Date Activity User E-Sign Co-Sign Detail Recorded Client Recorded Date Recorded By Document 10/10/21 12:30 PL [id number] 10/10/21 12:31 PL Document 10/17/21 14:37 PL [id number] 10/17/21 14:37 PL 10/10/21 10/17/21 12:30 14:37 Wound Center Nurse 2 #1 Left mary -Time 10:50 13:30 -Correct Patient Yes Yes -Correct Side, Site, Position Yes Yes -Correct Procedure Yes Yes -Procedure Performed Yes Yes -Type of Procedure Debridement Debridement -Clinical Debridement Subcutaneous Subcutaneous -Tissue Removed Subcutaneous Subcutaneous -Post Debridement (cm) - Length 2.9 2.4 -Post Debridement (cm) - Width 1.7 0.5 -Post Debridement (cm) - Depth 1.0 0.3 -Total Square (Post) (cm) 4.93 1.20 -Area of Debridement (cm) - Length 2.9 2.4 -Area of Debridement (cm) - Width 1.7 0.5 -Total Square (Area) (cm) 4.93 1.20 -Tunneling No No -Undermining/Tunneling No No -Circular Undermining No No -Wound/Ulcer Outcome Not Healed Not Healed -Ulcer Cleansing Rinsed/ Rinsed/ Irrigated with Irrigated with Saline Saline -Foul Odor after Cleansing No No -Bioengineered Tissue No No -Bleeding Controlled with Pressure Pressure -Treatment Response Procedure Procedure Tolerated Well Tolerated Well -Debridement - Subq, 1st 20sq cm Yes Yes Pain Scale: 0-10 Numeric Is Patient Pain Free? Yes Yes - Nurse 3 - General Ulcer D/C NN Start: 10/10/21 08:19 Freq: Status: Active Protocol: Activity Type Activity Date Activity User E-Sign Co-Sign Detail Recorded Client Recorded Date Recorded By Document 10/10/21 11:30 AK [id number] 10/10/21 11:32 AK Document 10/17/21 13:53 BM [id number] 10/17/21 13:54 BMF Document 10/31/21 11:41 LA [id number] 10/31/21 11:43 AK 10/10/21 10/17/21 10/31/21 11:30 13:53 11:41 Wound Care Nurse 3 #1 Left mary -Ulcer Cleansing Rinsed/ Rinsed/ Rinsed/ Irrigated with Irrigated with Irrigated with Saline Saline Saline -Foul Odor after Cleansing No No No -Negative Pressure Wound Therapy N/A N/A -Primary Dressing Applied Aquacel AG 4x4 Aquacel AG 4x4 C Hydrogel ($) -Primary Dressing Covered/Secured with Dry Gauze & Dry Gauze & Roll Gauze, Roll Gauze, Secured with Secured with Tape Tape -Other Covering DRSG [employer] -Aquacel AG 4x4 1 1 BLE -Lotion applied to leg before No compression wrap -Tubular Bandage Double Layer Double Layer -Size of Tubigrip Used Size E Size F -Size E ($) 4 -Size F ($) 2 -Other EXTRA PAIR SENT W/ PT Treatment Response Procedure Tolerated Well Pain Scale: 0-10 Numeric Is Patient Pain Free? Yes Yes No WC - Visit Discharge Discharge Condition Stable Stable Stable Ambulatory Status Ambulatory, Ambulatory, Ambulatory, Walker Walker Walker Transportation Private Auto Private Auto Private Auto Accompanied by aid FRIEND Medication Reconcilliation completed & Yes Yes provided to patient/care provider Clinical Summary of Care Provided Yes Yes Facility Type Home Health Assessment/Plan Assessment/Plan (1) Puncture wound of left lower extremity: CODE(S): S81.832A - Puncture wound without foreign body, left lower leg, initial encounter (2) Edema of lower extremity: CODE(S): R60.0 - Localized edema (3) Swelling of lower extremity: CODE(S): M79.89 - Other specified soft tissue disorders (4) Debility: CODE(S): R53.81 - Other malaise (5) Limited mobility: CODE(S): Z74.09 - Other reduced mobility (6) Carotid stenosis: CODE(S): I65.29 - Occlusion and stenosis of unspecified carotid artery (7) Chronic renal insufficiency, stage IV (severe): CODE(S): N18.4 - Chronic kidney disease, stage 4 (severe) (8) Dependent edema: CODE(S): R60.9 - Edema, unspecified (9) COPD (chronic obstructive pulmonary disease): CODE(S): J44.9 - Chronic obstructive pulmonary disease, unspecified (10) Coronary artery disease: CODE(S): I25.10 - Atherosclerotic heart disease of platinum coronary artery without angina pectoris (11) Obesity (BMI 30.0-34.9): CODE(S): E66.9 - Obesity, unspecified (12) Cirrhosis: CODE(S): K74.60 - Unspecified cirrhosis of liver QUALIFIERS: Hepatic cirrhosis type: unspecified hepatic cirrhosis Ascites presence: unspecified Qualified Code(s): K74.60 - Unspecified cirrhosis of liver (13) Osteopenia determined by x-ray: CODE(S): M85.80 - Other specified disorders of bone density and structure, unspecified site (14) Secondary hyperparathyroidism: CODE(S): N25.81 - Secondary hyperparathyroidism of renal origin (15) Hypertension: CODE(S): I10 - Essential (primary) hypertension (16) Psoriasis: CODE(S): L40.9 - Psoriasis, unspecified (17) Hyperlipidemia: CODE(S): E78.5 - Hyperlipidemia, unspecified (18) Arthritis: CODE(S): M19.90 - Unspecified osteoarthritis, unspecified site (19) Diabetes mellitus, type II: CODE(S): E11.9 - Type 2 diabetes mellitus without complications (20) Asthma: CODE(S): J45.909 - Unspecified asthma, uncomplicated PLAN: This is an 86-year-old female who presents as result of a traumatic wound on the left pretibial area. This resulted due to trauma from a rocking chair approximately 1 month prior to presentation. At the time of the initial injury, the patient was evaluated in the emergency department, where stitches were placed. The absorbable sutures which were used for closure subsequently dissolved, and the traumatic wound has dehisced. She presented at our facility with an open wound at the site. She has had several episodes of cellulitis, with MRSA having been identified by wound culture. She has been treated by means of oral cephalexin and doxycycline. Her recent wound culture, obtained on October 10, 2021, was negative for aerobic and anaerobic bacteria growth. She is relatively immobile, limited in ambulation, and requires a walker for mobility. She sleeps on a flat mattress at night, but spends long hours each day in a sitting position. As result, the patient experiences swelling in both lower extremities, which is most severe late each day. At her initial presentation, swelling and edema were noted, with a generalized inflammatory erythema noted in the gaiter areas bilaterally. The patient has been instructed to elevate her lower extremities as much as possible, even during daytime hours. Elevation is to be to heart level, or higher. Prolonged idle sitting has been discouraged. Activity has been encouraged, but the patient's debility will limit the amount of ambulation which can be achieved. We have implemented compression to the lower extremities by means of double Tubigrip's, applied by the patient, friends, and home health nursing staff on a daily basis. We are to transition to the use of graduated compression stockings, and the patient has been provided a prescription for graduated compression stockings, knee-high length, of 15 to 20 mmHg compression. These are to be worn daily. The patient has been instructed to optimize her nutritional intake, and to optimize her glycemic control. She has had a battery of diagnostic laboratory tests recently in [place], and those lab results have been requested. 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 The patient's most recent wound cultures, obtained on October 10, 2021, were negative for aerobic and anaerobic bacterial growth. We are to implement the use of collagen hydroge l, which will be applied topically on a daily basis. The patient is to return in 1 week for reassessment. Her wound appears to be nearly healed. Once again, the patient has been encouraged to elevate her lower extremities and to avoid prolonged idle sitting. Home health nursing staff and personal friends are involved in the patient's home care. The patient is to follow-up in 1 week for reevaluation. Total time: 28 minutes
== END 2021-11-02 23:59 | disposition home or self-care (01) ==
LOC: WC 10:45
PROVIDERS: PCP Physician Assistant; Referring Provider Surgery; Visit Provider Surgery
DX: S81.832A Puncture wound without foreign body, left lower leg, initial encounter (principal); K74.60 Unspecified cirrhosis of liver; J44.9 Chronic obstructive pulmonary disease, unspecified; E11.22 Type 2 diabetes mellitus with diabetic chronic kidney disease; N18.4 Chronic kidney disease, stage 4 (severe); I77.1 Stricture of artery; E66.01 Morbid (severe) obesity due to excess calories; N25.81 Secondary hyperparathyroidism of renal origin; Z79.4 Long term (current) use of insulin; Z68.33 Body mass index [BMI] 33.0-33.9, adult; I12.9 Hypertensive chronic kidney disease with stage 1 through stage 4 chronic kidney disease, or unspecified chronic kidney disease; Z87.891 Personal history of nicotine dependence; L40.9 Psoriasis, unspecified; E78.5 Hyperlipidemia, unspecified; Z86.14 Personal history of Methicillin resistant Staphylococcus aureus infection; R60.0 Localized edema; I25.10 Atherosclerotic heart disease of native coronary artery without angina pectoris; M19.90 Unspecified osteoarthritis, unspecified site; W26.8XXA Contact with other sharp object(s), not elsewhere classified, initial encounter; Z79.899 Other long term (current) drug therapy; Z79.01 Long term (current) use of anticoagulants; Z79.82 Long term (current) use of aspirin; M79.89 Other specified soft tissue disorders; I70.90 Unspecified atherosclerosis
CPT/HCPCS: 11042; 87070; 87075; 87205; 93923; 99213; G0463

== ENCOUNTER 2021-11-21 10:45 | Outpatient (RCR) | payer MEDICARE, MEDICAID, SELFPAY ==
[2021-11-03 00:11] VITALS: BP 138/74; PULSE 64; RESP 18; TEMP 35.7; BMI 33.8
[2021-11-07 11:06] VITALS: BP 149/52; PULSE 55; TEMP 36.4; BMI 33.8
--- NOTE | 2021-11-07 11:39 | HP.PCM_ITS ---
History of Present Illness Date of Service: 11/07/21 Chief Complaint: Puncture wound, left pretibial area History of Wound: This is an 86-year-old obese female with multiple pre-existing medical problems. Approximately 1 month prior to presentation the patient suffered a traumatic injury on the left pretibial area as result of impacting her rocking chair on September 10, 2021. She sustained a wound on the left pretibial area, and presented to the emergency department at [facility] in [place], [place]. In the emergency room, sutures were placed, and the patient was discharged. Her course thereafter has been somewhat fraught with complications. Approximately 2 weeks following her injury, the traumatic wound dehisced. The initial sutures which had been placed were absorbable. The patient has developed cellulitis in the area and has been treated with 2 courses of oral antibiotics, including doxycycline and cephalexin. She is also spent 2 days in the hospital in [place] in treatment for her cellulitis, with MRSA having been identified. The patient sleeps flat at night. However, during the daytime she is not very active. She does not ambulate liberally, requiring a walker for mobility. She spends a great deal of each day sitting idly. She experiences daily swelling in her lower extremities, which is most pronounced late in the day. [facility] Medical History Carotid stenosis Chronic renal insufficiency, stage IV (severe) Cirrhosis COPD (chronic obstructive pulmonary disease) Coronary artery disease Debility Dependent edema Edema of lower extremity Limited mobility Obesity (BMI 30.0-34.9) Osteopenia determined by x-ray Puncture wound of left lower extremity Secondary hyperparathyroidism Swelling of lower extremity Tonsillectomy planned Tubal ligation evaluation Home Medications All Day Allergy (cetirizine) 10 mg PO DAILY 06/09/14 [History Last Taken Unknown] Augmented Betamethasone Lotion 1 applicatio TOPICAL DAILY 06/09/14 [History Last Taken Unknown] bupropion HCl 450 mg PO DAILY 06/09/14 [History Last Taken Unknown] cefuroxime axetil 250 mg PO BID 06/09/14 [History Last Taken Unknown] cholecalciferol (vitamin D3) 2,000 unit PO DAILY 06/09/14 [History Last Taken Unknown] clonazepam 0.5 mg PO Q8H PRN PRN 06/09/14 [History Last Taken Unknown] fluticasone propion-salmeterol [Advair Diskus] 1 puff INHALATION BID 06/09/14 [History Last Taken 06/22/14 06:30] folic acid 1 mg PO DAILY@0800 06/09/14 [History Last Taken Unknown] furosemide 40 mg PO DAILY 06/09/14 [History Last Taken Unknown] insulin glargine [Lantus Solostar U-100 Insulin] 38 units SUBCUT QHS 06/09/14 [History Last Taken Unknown] insulin glargine [Lantus Solostar U-100 Insulin] 42 units SUBCUT BREAKFAST 06/09/14 [History Last Taken Unknown] insulin lispro [Humalog U-100 Insulin] 2 - 30 unit SQ TID 06/09/14 [History Last Taken Unknown] losartan 100 mg PO DAILY 06/09/14 [History Last Taken Unknown] methotrexate sodium 7.5 mg PO FOSTER 06/09/14 [History Last Taken Unknown] metoprolol tartrate 25 mg PO DAILY 06/09/14 [History Last Taken 06/22/14 06:30] potassium chloride [Klor-Con M20] 20 meq PO BID 06/09/14 [History Last Taken Unknown] pravastatin 80 mg PO DAILY 06/09/14 [History Last Taken Unknown] zolpidem 5 mg PO QHS PRN 06/09/14 [History Last Taken Unknown] aspirin 81 mg PO DAILY@0800 #1 06/25/14 [Rx Last Taken 06/17/14 21:00] diphenhydramine HCl [Banophen] 50 mg PO Q6H PRN PRN #30 capsule 06/25/14 [Rx Last Taken Unknown] rivaroxaban [Xarelto] 10 mg PO DAILY@0600 #10 tablet 06/25/14 [Rx Last Taken Unknown] tramadol 50 mg PO Q4H PRN PRN #80 tablet 06/25/14 [Rx Last Taken Unknown] acetaminophen 650 mg tablet,extended release 650 mg PO Q12H 12/01/20 [History Last Taken Unknown] albuterol sulfate 2.5 mg INHALATION Q6H 12/01/20 [History Last Taken Unknown] docusate calcium 240 mg capsule 240 mg PO DAILY 12/01/20 [History Last Taken Unknown] flash glucose sensor #1 ea 12/01/20 [History Last Taken Unknown] montelukast 10 mg tablet 10 mg PO DAILY 12/01/20 [History Last Taken Unknown] nifedipine 60 mg tablet,extended release 60 mg PO DAILY 12/01/20 [History Last Taken Unknown] nystatin 100,000 unit/gram topical cream 1 applic TOPICAL BID 12/01/20 [History Last Taken Unknown] pantoprazole 20 mg PO DAILY 10/10/21 [History Last Taken Unknown] potassium bicarb and chloride [Pot Bicarb-Pot Chloride(25mEq)] ea 10/10/21 [History Last Taken Unknown] Allergy/AdvReac Type Severity Reaction Status Date / Time adhesive Allergy Rash Verified 12/01/20 13:51 iodine Allergy Swelling Verified 12/01/20 13:51 latex Allergy Rash Verified 12/01/20 13:51 hydrocodone bitartrate AdvReac Nausea Verified 12/01/20 13:51 [From Vicodin] metformin AdvReac Other Verified 12/01/20 13:51 morphine AdvReac Itching Verified 12/01/20 13:51 Sulfa (Sulfonamide AdvReac Nausea/Vom/ Verified 12/01/20 13:51 Antibiotics) Diarrhea Family History Other Asthma CVA (cerebral vascular accident) Colon cancer Diabetes Heart disease High cholesterol Hypertension Kidney disease Kidney stones Lupus Osteoporosis Seizures Skin cancer Thyroid disorder Ulcer Surgical History H/O knee surgery Surgical History no surgical history Social History Smoking Status: Former smoker Vital Signs Vital Signs Vital Signs: 11/07/21 11:06 Temperature 97.6 F L Temperature Source Temporal Pulse Rate 55 L Blood Pressure 149/52 H Blood Pressure Mean 84 Weight Weight: 191 lb Body Mass Index (BMI) 33.8 Physical Exam Const alert, oriented x3, no apparent distress and well nourished Constitutional Narrative: The patient is obese. General Appearance: cooperative, comfortable, well kempt and well developed Orientation / Consciousness: awake, oriented to person, oriented to place and oriented to time HEENT normocephalic and head/scalp atraumatic Head and Scalp: normal to inspection, normocephalic and atraumatic External Ear: external ears normal Eyes PERRL and EOMs intact bilaterally General Eye: normal appearance of both eyes Resp normal respiratory effort, normal air movement, no retractions and no use of accessory muscles Effort and Inspection: able to speak in complete sentences Extremity no calf tenderness Extremity Narrative: Mild swelling and edema are noted in the patient's left lower extremity. General Extremity: Negative for clubbing or cyanosis Skin Wound Narrative: The puncture wound on the left pretibial area persists, but is smaller in size. Dimensions are documented elsewhere. There is evidence of peripheral epithelialization. There is no sign of infection or cellulitis. There is a moderate amount of bioburden. Neuro oriented x3, CN's II-XII intact bilaterally and moves all extremities Sensorium / Orientation: awake, alert, oriented to person, oriented to place and oriented to time Psych Appearance: grossly normal and appropriate Attitude: calm Activity / Motor Behavior: appropriate eye contact Speech: normal speech Mood & Affect: euthymic mood Thought Process: normal thought process Thought Content: normal thought content Attention / Concentration: attention grossly intact Debridement Note Debridement Note Wound debrided: Left pretibial wound Laterality: Left Type of Debridement: Excisional debridement Anesthesia Used: 5% Lidocaine Gel Depth: Down to and including healthy tissue and in the subcutaneous layer Percentage of wound debrided: 100 Instrument Used: 3mm curette Tissue Removed: Bioburden Severity: Fat Layer Exposed Amount of bleeding with debridement: Mild Bleeding Controlled with: Compression and gauze Patient tolerated procedure: Patient tolerated procedure well Post-Debridement Measurements and Additional Note: Post-Debridement Measurements/Treatment - Nurse 1 - General Ulcer Assessment Start: 11/07/21 11:06 Freq: Status: Active Protocol: AJIT Activity Type Activity Date Activity User E-Sign Co-Sign Detail Recorded Client Recorded Date Recorded By Document 11/07/21 11:06 DILLAN [id number] 11/07/21 11:10 DILLAN 11/07/21 11:06 - Today's Visit Information Type of service Follow-up Visit (Physician/CERAMIC DESIGN ENGINEER ) Arrival Mode Ambulatory, Walker Patient Identification Verified (Name & Yes ) Patient Requires Transmission-Based No Precautions Safety Precautions NA Height and Weight Body Mass Index (BMI) 33.8 BMI Classification Obese Vital Signs Temperature (97.8 F-99.1 F) 97.6 F L Temperature Source Temporal Pulse Rate (60-100) 55 L Pulse Location Monitor Blood Pressure (90/60-120/80) 149/52 H Blood Pressure Mean 84 History Since Last Visit- (Skip if this is Patient's initial visit) Have you changed medications since your No last visit? Any new allergies or adverse reactions No Had a fall/change in ADL's that may No increase risk of falls Signs or symptoms of abuse and/or No neglect since last visit Have you been in the hospital since your No last visit? Has dressing in place as prescribed Yes Has compression in place as prescribed Yes Has offloadiing in place as prescribed N/A Experienced any changes in pain level or No management Left Footwear Regular Shoe Right Footwear Regular Shoe Pain Scale: 0-10 Numeric Is Patient Pain Free? Yes WC - Nurse 1 - General Ulcer Measurement Start: 11/07/21 11:06 Freq: Status: Active Protocol: Activity Type Activity Date Activity User E-Sign Co-Sign Detail Recorded Client Recorded Date Recorded By Document 11/07/21 11:06 DILLAN [id number] 11/07/21 11:10 DILLAN 11/07/21 11:06 Wound Center Nurse 1 #1 Left mary -Combined with other wound No -Current Size (cm) - Length 1 -Current Size (cm) - Width 0.2 -Current Size (cm) - Depth 0.2 -Total Square Cm 0.2 -Photo Taken No -Tunneling No -Undermining/Tunneling No -Circular Undermining No -Change in Wound Grade/Stage No -Exudate Amt Medium -Exudate Type Serosanguineous -Wound Margin Distinct, Outline Attached -Granulation Amt Medium (34-66%) -Granulation Quality [place] -Slough/Fibrin Yes -Necrosis Amt Medium (34-66%) -Necrotic Tissue Type Adherent Slough -Structure Exposed N/A -Texture (Sis-wound Skin Appearance) No Abnormality, Assessed -Moisture (Sis-wound Skin Appearance) No Abnormality, Assessed -Color (Sis-wound Skin Appearance) No Abnormality, Assessed -Temperature (Sis-wound Skin No Abnormality Appearance) (Pt Warm) -Tenderness on Palpation (Sis-wound No Skin Appearance) -Ulcer Cleansing Rinsed/ Irrigated with Saline -Foul Odor after Cleansing No -Anesthetic Used 4% Lidocaine Solution Lower Limb Edema Present No Right Calf (cm) 39.5 Right Ankle (cm) 23.5 Left Calf (cm) 38.5 Left Ankle (cm) 23 WC - Nurse 2 - General Ulcer CM Notes Start: 11/07/21 11:06 Freq: Status: Active Protocol: Activity Type Activity Date Activity User E-Sign Co-Sign Detail Recorded Client Recorded Date Recorded By Document 11/07/21 11:23 PL [id number] 11/07/21 11:24 PL 11/07/21 11:23 Wound Center Nurse 2 #1 Left mary -Time 11:18 -Correct Patient Yes -Correct Side, Site, Position Yes -Correct Procedure Yes -Procedure Performed Yes -Type of Procedure Debridement -Clinical Debridement Subcutaneous -Tissue Removed Subcutaneous -Post Debridement (cm) - Length 1.0 -Post Debridement (cm) - Width 0.2 -Post Debridement (cm) - Depth 0.2 -Total Square (Post) (cm) 0.20 -Area of Debridement (cm) - Length 1.0 -Area of Debridement (cm) - Width 0.2 -Total Square (Area) (cm) 0.20 -Tunneling No -Undermining/Tunneling No -Circular Undermining No -Wound/Ulcer Outcome Not Healed -Ulcer Cleansing Rinsed/ Irrigated with Saline -Foul Odor after Cleansing No -Bioengineered Tissue No -Bleeding Controlled with Pressure -Treatment Response Procedure Tolerated Well -Debridement - Subq, 1st 20sq cm Yes Pain Scale: 0-10 Numeric Is Patient Pain Free? Yes - Nurse 3 - General Ulcer D/C NN Start: 11/07/21 11:06 Freq: Status: Active Protocol: Activity Type Activity Date Activity User E-Sign Co-Sign Detail Recorded Client Recorded Date Recorded By Document 11/07/21 11:32 DL [id number] 11/07/21 11:34 DL 11/07/21 11:32 Wound Care Nurse 3 #1 Left mary -Ulcer Cleansing Rinsed/ Irrigated with Saline -Foul Odor after Cleansing No -Other Dressing hydrogel -Primary Dressing Covered/Secured with Dry Gauze,Dry Gauze & Roll Gauze,Secured with Tape Left -Lotion applied to leg before Yes compression wrap Treatment Response Procedure Tolerated Well Pain Scale: 0-10 Numeric Is Patient Pain Free? Yes WC - Visit Discharge Discharge Condition Stable Ambulatory Status Ambulatory Transportation Private Auto Notes: Pt refused tubigrip today Facility Type Home Health Orders Sent Yes Assessment/Plan Assessment/Plan (1) Puncture wound of left lower extremity: CODE(S): S81.832A - Puncture wound without foreign body, left lower leg, initial encounter (2) Edema of lower extremity: CODE(S): R60.0 - Localized edema (3) Swelling of lower extremity: CODE(S): M79.89 - Other specified soft tissue disorders (4) Debility: CODE(S): R53.81 - Other malaise (5) Limited mobility: CODE(S): Z74.09 - Other reduced mobility (6) Carotid stenosis: CODE(S): I65.29 - Occlusion and stenosis of unspecified carotid artery (7) Chronic renal insufficiency, stage IV (severe): CODE(S): N18.4 - Chronic kidney disease, stage 4 (severe) (8) Dependent edema: CODE(S): R60.9 - Edema, unspecified (9) COPD (chronic obstructive pulmonary disease): CODE(S): J44.9 - Chronic obstructive pulmonary disease, unspecified (10) Coronary artery disease: CODE(S): I25.10 - Atherosclerotic heart disease of [place] coronary artery without angina pectoris (11) Cirrhosis: CODE(S): K74.60 - Unspecified cirrhosis of liver QUALIFIERS: Hepatic cirrhosis type: unspecified hepatic cirrhosis Ascites presence: unspecified Qualified Code(s): K74.60 - Unspecified cirrhosis of liver (12) Obesity (BMI 30.0-34.9): CODE(S): E66.9 - Obesity, unspecified (13) Osteopenia determined by x-ray: CODE(S): M85.80 - Other specified disorders of bone density and structure, unspecified site (14) Secondary hyperparathyroidism: CODE(S): N25.81 - Secondary hyperparathyroidism of renal origin (15) Hypertension: CODE(S): I10 - Essential (primary) hypertension (16) Psoriasis: CODE(S): L40.9 - Psoriasis, unspecified (17) Hyperlipidemia: CODE(S): E78.5 - Hyperlipidemia, unspecified (18) Arthritis: CODE(S): M19.90 - Unspecified osteoarthritis, unspecified site (19) Diabetes mellitus, type II: CODE(S): E11.9 - Type 2 diabetes mellitus without complications (20) Morbid obesity with BMI of 40.0-44.9, adult: CODE(S): E66.01 - Morbid (severe) obesity due to excess calories; Z68.41 - Body mass index [BMI] 40.0-44.9, adult (21) Asthma: CODE(S): J45.909 - Unspecified asthma, uncomplicated PLAN: This is an 86-year-old female who presented as result of a traumatic wound on the left pretibial area. This resulted due to trauma from a rocking chair approximately 1 month prior to presentation. At the time of the initial injury, the patient was evaluated in the emergency department, where stitches were placed. The absorbable sutures which were used for closure subsequently dissolved, and the traumatic wound has dehisced. She presented at our facility with an open wound at the site. She has had several episodes of cellulitis, with MRSA having been identified by wound culture. She has been treated by means of oral cephalexin and doxycycline. Her recent wound culture, obtained on October 10, 2021, was negative for aerobic and anaerobic bacteria growth. She is relatively immobile, limited in ambulation, and requires a walker for mobility. She sleeps on a flat mattress at night, but spends long hours each day in a sitting position. As result, the patient experiences swelling in both lower extremities, which is most severe late each day. At her initial presentation, swelling and edema were noted, with a generalized inflammatory erythema noted in the gaiter areas bilaterally. The patient has been instructed to elevate her lower extremities as much as possible, even during daytime hours. Elevation is to be to heart level, or higher. Prolonged idle sitting has been discouraged. Activity has been encouraged, but the patient's debility will limit the amount of ambulation which can be achieved. We have implemented compression to the lower extremities by means of graduated compression stockings of 15 to 20 mmHg, which the patient has been instructed to wear daily. The patient has been in structed to optimize her nutritional intake, and to optimize her glycemic control. She has had a battery of diagnostic laboratory tests recently in [place], and those lab results have been requested. 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 The patient's most recent wound cultures, obtained on October 10, 2021, were negative for aerobic and anaerobic bacterial growth. We are to continue the use of collagen hydrogel, which will be applied topically on a daily basis. The patient is to return in 1 week for reassessment. Her wound appears to be nearly healed. Once again, the patient has been encouraged to elevate her lower extremities and to avoid prolonged idle sitting. Home health nursing staff and personal friends are involved in the patient's home care. The patient is to follow-up in 1 week for reevaluation. Total time: 29 minutes
[2021-11-14 11:00] VITALS: BP 130/50; PULSE 59; RESP 18; TEMP 36.3; BMI 33.8
--- NOTE | 2021-11-14 16:07 | HP.PCM_ITS ---
History of Present Illness Date of Service: 11/14/21 Chief Complaint: Puncture wound, left pretibial area History of Wound: This is an 86-year-old obese female with multiple pre-existing medical problems. Approximately 1 month prior to presentation the patient suffered a traumatic injury on the left pretibial area as result of impacting her rocking chair on September 10, 2021. She sustained a wound on the left pretibial area, and presented to the emergency department at [facility] in [place], [place]. In the emergency room, sutures were placed, and the patient was discharged. Her course thereafter has been somewhat fraught with complications. Approximately 2 weeks following her injury, the traumatic wound dehisced. The initial sutures which had been placed were absorbable. The patient has developed cellulitis in the area and has been treated with 2 courses of oral antibiotics, including doxycycline and cephalexin. She is also spent 2 days in the hospital in [place] in treatment for her cellulitis, with MRSA having been identified. The patient sleeps flat at night. However, during the daytime she is not very active. She does not ambulate liberally, requiring a walker for mobility. She spends a great deal of each day sitting idly. She experiences daily swelling in her lower extremities, which is most pronounced late in the day. [facility] Medical History Carotid stenosis Chronic renal insufficiency, stage IV (severe) Cirrhosis COPD (chronic obstructive pulmonary disease) Coronary artery disease Debility Dependent edema Edema of lower extremity Limited mobility Obesity (BMI 30.0-34.9) Osteopenia determined by x-ray Puncture wound of left lower extremity Secondary hyperparathyroidism Swelling of lower extremity Tonsillectomy planned Tubal ligation evaluation Home Medications All Day Allergy (cetirizine) 10 mg PO DAILY 06/09/14 [History Last Taken Unknown] Augmented Betamethasone Lotion 1 applicatio TOPICAL DAILY 06/09/14 [History Last Taken Unknown] bupropion HCl 450 mg PO DAILY 06/09/14 [History Last Taken Unknown] cefuroxime axetil 250 mg PO BID 06/09/14 [History Last Taken Unknown] cholecalciferol (vitamin D3) 2,000 unit PO DAILY 06/09/14 [History Last Taken Unknown] clonazepam 0.5 mg PO Q8H PRN PRN 06/09/14 [History Last Taken Unknown] fluticasone propion-salmeterol [Advair Diskus] 1 puff INHALATION BID 06/09/14 [History Last Taken 06/22/14 06:30] folic acid 1 mg PO DAILY@0800 06/09/14 [History Last Taken Unknown] furosemide 40 mg PO DAILY 06/09/14 [History Last Taken Unknown] insulin glargine [Lantus Solostar U-100 Insulin] 38 units SUBCUT QHS 06/09/14 [History Last Taken Unknown] insulin glargine [Lantus Solostar U-100 Insulin] 42 units SUBCUT BREAKFAST 06/09/14 [History Last Taken Unknown] insulin lispro [Humalog U-100 Insulin] 2 - 30 unit SQ TID 06/09/14 [History Last Taken Unknown] losartan 100 mg PO DAILY 06/09/14 [History Last Taken Unknown] methotrexate sodium 7.5 mg PO FOSTER 06/09/14 [History Last Taken Unknown] metoprolol tartrate 25 mg PO DAILY 06/09/14 [History Last Taken 06/22/14 06:30] potassium chloride [Klor-Con M20] 20 meq PO BID 06/09/14 [History Last Taken Unknown] pravastatin 80 mg PO DAILY 06/09/14 [History Last Taken Unknown] zolpidem 5 mg PO QHS PRN 06/09/14 [History Last Taken Unknown] aspirin 81 mg PO DAILY@0800 #1 06/25/14 [Rx Last Taken 06/17/14 21:00] diphenhydramine HCl [Banophen] 50 mg PO Q6H PRN PRN #30 capsule 06/25/14 [Rx Last Taken Unknown] rivaroxaban [Xarelto] 10 mg PO DAILY@0600 #10 tablet 06/25/14 [Rx Last Taken Unknown] tramadol 50 mg PO Q4H PRN PRN #80 tablet 06/25/14 [Rx Last Taken Unknown] acetaminophen 650 mg tablet,extended release 650 mg PO Q12H 12/01/20 [History Last Taken Unknown] albuterol sulfate 2.5 mg INHALATION Q6H 12/01/20 [History Last Taken Unknown] docusate calcium 240 mg capsule 240 mg PO DAILY 12/01/20 [History Last Taken Unknown] flash glucose sensor #1 ea 12/01/20 [History Last Taken Unknown] montelukast 10 mg tablet 10 mg PO DAILY 12/01/20 [History Last Taken Unknown] nifedipine 60 mg tablet,extended release 60 mg PO DAILY 12/01/20 [History Last Taken Unknown] nystatin 100,000 unit/gram topical cream 1 applic TOPICAL BID 12/01/20 [History Last Taken Unknown] pantoprazole 20 mg PO DAILY 10/10/21 [History Last Taken Unknown] potassium bicarb and chloride [Pot Bicarb-Pot Chloride(25mEq)] ea 10/10/21 [History Last Taken Unknown] Allergy/AdvReac Type Severity Reaction Status Date / Time adhesive Allergy Rash Verified 12/01/20 13:51 iodine Allergy Swelling Verified 12/01/20 13:51 latex Allergy Rash Verified 12/01/20 13:51 hydrocodone bitartrate AdvReac Nausea Verified 12/01/20 13:51 [From Vicodin] metformin AdvReac Other Verified 12/01/20 13:51 morphine AdvReac Itching Verified 12/01/20 13:51 Sulfa (Sulfonamide AdvReac Nausea/Vom/ Verified 12/01/20 13:51 Antibiotics) Diarrhea Family History Other Asthma CVA (cerebral vascular accident) Colon cancer Diabetes Heart disease High cholesterol Hypertension Kidney disease Kidney stones Lupus Osteoporosis Seizures Skin cancer Thyroid disorder Ulcer Surgical History H/O knee surgery Surgical History no surgical history Social History Smoking Status: Former smoker Vital Signs Vital Signs Vital Signs: 11/14/21 11:00 Temperature 97.4 F L Temperature Source Temporal Pulse Rate 59 L Respiratory Rate 18 Blood Pressure 130/50 H Blood Pressure Mean 76 Blood Pressure Source Monitor Blood Pressure Position Sitting Blood Pressure Location Left Arm Oxygen Delivery Method Room Air Weight Weight: 191 lb Body Mass Index (BMI) 33.8 Physical Exam Const alert, oriented x3, no apparent distress and well nourished General Appearance: cooperative, comfortable, well kempt and well developed Orientation / Consciousness: awake, oriented to person, oriented to place and oriented to time HEENT normocephalic and head/scalp atraumatic Head and Scalp: normal to inspection, normocephalic and atraumatic External Ear: external ears normal Eyes PERRL and EOMs intact bilaterally General Eye: normal appearance of both eyes Resp normal respiratory effort, normal air movement, no retractions and no use of accessory muscles Effort and Inspection: able to speak in complete sentences Extremity no calf tenderness General Extremity: Negative for clubbing or cyanosis Skin Wound Narrative: There is no significant swelling or edema in the patient's left lower extremity. The puncture wound persists, but is smaller in size. Dimensions are documented elsewhere. There is no sign of infection or cellulitis. There is a moderate amount of bioburden. Neuro oriented x3, CN's II-XII intact bilaterally and moves all extremities Sensorium / Orientation: awake, alert, oriented to person, oriented to place and oriented to time Psych Appearance: grossly normal and appropriate Attitude: calm Activity / Motor Behavior: appropriate eye contact Speech: normal speech Mood & Affect: euthymic mood Thought Process: normal thought process Thought Content: normal thought content Attention / Concentration: attention grossly intact Debridement Note Debridement Note Wound debrided: Left pretibial area Laterality: Left Type of Debridement: Excisional debridement and Selective debridement Anesthesia Used: 5% Lidocaine Gel Depth: Down to and including healthy tissue and in the subcutaneous layer Percentage of wound debrided: 100 Instrument Used: 3mm curette Tissue Removed: Bioburden Severity: Fat Layer Exposed Amount of bleeding with debridement: Mild Bleeding Controlled with: Compression and gauze Patient tolerated procedure: Patient tolerated procedure well Post-Debridement Measurements and Additional Note: Post-Debridement Measurements/Treatment - Nurse 1 - General Ulcer Assessment Start: 11/07/21 11:06 Freq: Status: Active Protocol: AJIT Activity Type Activity Date Activity User E-Sign Co-Sign Detail Recorded Client Recorded Date Recorded By Document 11/07/21 11:06 AK [id number] 11/07/21 11:10 AK Document 11/14/21 11:00 MW [id number] 11/14/21 11:10 MW 11/07/21 11/14/21 11:06 11:00 - Today's Visit Information Type of service Follow-up Visit Follow-up Visit (Physician/DRUG REGULATORY AFFAIRS SPECIALIST (Physician/DRUG REGULATORY AFFAIRS SPECIALIST ) ) Arrival Mode Ambulatory, Ambulatory, Walker Walker Transfer Assistance None Accompanied by nephew Patient Identification Verified (Name & Yes Yes ) Patient Requires Transmission-Based No No Precautions Safety Precautions NA Fall Prevention Finger Stick Blood Sugar(mg/dl) (if 131 indicated): Blood Sugar Stated by Patient Height and Weight Body Mass Index (BMI) 33.8 33.8 BMI Classification Obese Obese Vital Signs Temperature (97.8 F-99.1 F) 97.6 F L 97.4 F L Temperature Source Temporal Temporal Pulse Rate (60-100) 55 L 59 L Pulse Location Monitor Monitor Respiratory Rate (12-18) 18 Respiratory rate source Observation Oxygen Delivery Method Room Air Blood Pressure (90/60-120/80) 149/52 H 130/50 H Blood Pressure Mean 84 76 Source Monitor Position Sitting Blood Pressure Location Left Arm History Since Last Visit- (Skip if this is Patient's initial visit) Have you changed medications since your No No last visit? Any new allergies or adverse reactions No No Had a fall/change in ADL's that may No No increase risk of falls Signs or symptoms of abuse and/or No No neglect since last visit Have you been in the hospital since your No No last visit? Has dressing in place as prescribed Yes Yes Has compression in place as prescribed Yes Yes Has offloadiing in place as prescribed N/A N/A Experienced any changes in pain level or No No management Left Footwear Regular Shoe Regular Shoe Right Footwear Regular Shoe Regular Shoe Pain Scale: 0-10 Numeric Is Patient Pain Free? Yes Yes WC - Nurse 1 - General Ulcer Measurement Start: 11/07/21 11:06 Freq: Status: Active Protocol: Activity Type Activity Date Activity User E-Sign Co-Sign Detail Recorded Client Recorded Date Recorded By Document 11/07/21 11:06 AK [id number] 11/07/21 11:10 AK Document 11/14/21 11:00 MW [id number] 11/14/21 11:10 MW 11/07/21 11/14/21 11:06 11:00 Wound Center Nurse 1 #1 Left mary -Combined with other wound No No -Current Size (cm) - Length 1 0.1 -Current Size (cm) - Width 0.2 0.1 -Current Size (cm) - Depth 0.2 0.1 -Total Square Cm 0.2 0.01 -Date of Last Picture (Recall this 11/14/21 field) -Photo Taken No Yes -Epithelialization Large 67-100% -Tunneling No No -Undermining/Tunneling No No -Circular Undermining No No -Change in Wound Grade/Stage No -Exudate Amt Medium None Present -Exudate Type Serosanguineous -Wound Margin Distinct, Outline Attached -Granulation Amt Medium (34-66%) None Present (0 %) -Granulation Quality Angie N/A -Slough/Fibrin Yes No -Necrosis Amt Medium (34-66%) None Present (0 %) -Necrotic Tissue Type Adherent Slough -Structure Exposed N/A -Texture (Sis-wound Skin Appearance) No Abnormality, Assessed, Assessed Localized Edema ,Scarring -Moisture (Sis-wound Skin Appearance) No Abnormality, No Abnormality, Assessed Assessed -Color (Sis-wound Skin Appearance) No Abnormality, No Abnormality, Assessed Assessed -Temperature (Sis-wound Skin No Abnormality Appearance) (Pt Warm) -Tenderness on Palpation (Sis-wound No Skin Appearance) -Ulcer Cleansing Rinsed/ Irrigated with Saline -Foul Odor after Cleansing No -Anesthetic Used 4% Lidocaine Solution Lower Limb Edema Present No Yes Right Calf (cm) 39.5 Right Ankle (cm) 23.5 Left Calf (cm) 38.5 34.5 Left Ankle (cm) 23 23.0 WC - Nurse 2 - General Ulcer CM Notes Start: 11/07/21 11:06 Freq: Status: Active Protocol: Activity Type Activity Date Activity User E-Sign Co-Sign Detail Recorded Client Recorded Date Recorded By Document 11/07/21 11:23 PL [id number] 11/07/21 11:24 PL Document 11/14/21 12:38 PL [id number] 11/14/21 12:39 PL 11/07/21 11/14/21 11:23 12:38 Wound Center Nurse 2 #1 Left mary -Time 11:18 11:34 -Correct Patient Yes Yes -Correct Side, Site, Position Yes Yes -Correct Procedure Yes Yes -Procedure Performed Yes Yes -Type of Procedure Debridement Debridement -Clinical Debridement Subcutaneous Subcutaneous -Tissue Removed Subcutaneous Subcutaneous -Post Debridement (cm) - Length 1.0 0.2 -Post Debridement (cm) - Width 0.2 0.2 -Post Debridement (cm) - Depth 0.2 0.1 -Total Square (Post) (cm) 0.20 0.04 -Area of Debridement (cm) - Length 1.0 0.2 -Area of Debridement (cm) - Width 0.2 0.2 -Total Square (Area) (cm) 0.20 0.04 -Tunneling No No -Undermining/Tunneling No No -Circular Undermining No No -Wound/Ulcer Outcome Not Healed Not Healed -Ulcer Cleansing Rinsed/ Rinsed/ Irrigated with Irrigated with Saline Saline -Foul Odor after Cleansing No No -Bioengineered Tissue No No -Bleeding Controlled with Pressure Pressure -Treatment Response Procedure Procedure Tolerated Well Tolerated Well -Debridement - Subq, 1st 20sq cm Yes Yes Pain Scale: 0-10 Numeric Is Patient Pain Free? Yes Yes - Nurse 3 - General Ulcer D/C NN Start: 11/07/21 11:06 Freq: Status: Active Protocol: Activity Type Activity Date Activity User E-Sign Co-Sign Detail Recorded Client Recorded Date Recorded By Document 11/07/21 11:32 DL [id number] 11/07/21 11:34 DL Document 11/14/21 11:45 [id number] 11/14/21 11:47 11/07/21 11/14/21 11:32 11:45 Wound Care Nurse 3 #1 Left mary -Ulcer Cleansing Rinsed/ Rinsed/ Irrigated with Irrigated with Saline Saline -Foul Odor after Cleansing No No -Primary Dressing Applied C Hydrogel ($) -Other Dressing hydrogel -Primary Dressing Covered/Secured with Dry Gauze,Dry Dry Gauze, Gauze & Roll Secured with Gauze,Secured Tape with Tape Left -Lotion applied to leg before Yes compression wrap -Tubular Bandage Single Layer -Size of Tubigrip Used Size D -Size D ($) 0 Treatment Response Procedure Tolerated Well Pain Scale: 0-10 Numeric Is Patient Pain Free? Yes Yes - Visit Discharge Discharge Condition Stable Stable Ambulatory Status Ambulatory Ambulatory, Walker Transportation Private Auto Private Auto Accompanied by nephew Medication Reconcilliation completed & Yes provided to patient/care provider Clinical Summary of Care Provided Yes Notes: Pt refused tubigrip today Facility Type Home Health Orders Sent Yes Assessment/Plan Assessment/Plan (1) Puncture wound of left lower extremity: CODE(S): S81.832A - Puncture wound without foreign body, left lower leg, initial encounter (2) Edema of lower extremity: CODE(S): R60.0 - Localized edema (3) Swelling of lower extremity: CODE(S): M79.89 - Other specified soft tissue disorders (4) Debility: CODE(S): R53.81 - Other malaise (5) Limited mobility: CODE(S): Z74.09 - Other reduced mobility (6) Carotid stenosis: CODE(S): I65.29 - Occlusion and stenosis of unspecified carotid artery (7) Chronic renal insufficiency, stage IV (severe): CODE(S): N18.4 - Chronic kidney disease, stage 4 (severe) (8) Dependent edema: CODE(S): R60.9 - Edema, unspecified (9) COPD (chronic obstructive pulmonary disease): CODE(S): J44.9 - Chronic obstructive pulmonary disease, unspecified (10) Coronary artery disease: CODE(S): I25.10 - Atherosclerotic heart disease of [place] coronary artery without angina pectoris (11) Obesity (BMI 30.0-34.9): CODE(S): E66.9 - Obesity, unspecified (12) Cirrhosis: CODE(S): K74.60 - Unspecified cirrhosis of liver QUALIFIERS: Hepatic cirrhosis type: unspecified hepatic cirrhosis Ascites presence: unspecified Qualified Code(s): K74.60 - Unspecified cirrhosis of liver (13) Secondary hyperparathyroidism: CODE(S): N25.81 - Secondary hyperparathyroidism of renal origin (14) Hypertension: CODE(S): I10 - Essential (primary) hypertension (15) Psoriasis: CODE(S): L40.9 - Psoriasis, unspecified (16) Hyperlipidemia: CODE(S): E78.5 - Hyperlipidemia, unspecified (17) Arthritis: CODE(S): M19.90 - Unspecified osteoarthritis, unspecified site (18) Diabetes mellitus, type II: CODE(S): E11.9 - Type 2 diabetes mellitus without complications (19) Morbid obesity with BMI of 40.0-44.9, adult: CODE(S): E66.01 - Morbid (severe) obesity due to excess calories; Z68.41 - Body mass index [BMI] 40.0-44.9, adult (20) Asthma: CODE(S): J45.909 - Unspecified asthma, uncomplicated PLAN: This is an 86-year-old female who presented as result of a traumatic wound on the left pretibial area. This resulted due to trauma from a rocking chair approximately 1 month prior to presentation. At the time of the initial injury, the patient was evaluated in the emergency department, where stitches were placed. The absorbable sutures which were used for closure subsequently dissolved, and the traumatic wound has dehisced. She presented at our facility with an open wound at the site. She has had several episodes of cellulitis, with MRSA having been identified by wound culture. She has been treated by means of oral cephalexin and doxycycline. Her recent wound culture, obtained on October 10, 2021, was negative for aerobic and anaerobic bacteria growth. She is relatively immobile, limited in ambulation, and requires a walker for mobility. She sleeps on a flat mattress at night, but spends long hours each day in a sitting position. As result, the patient experiences swelling in both lower extremities, which is most severe late each day. At her initial presentation, swelling and edema were noted, with a generalized inflammatory erythema noted in the gaiter areas bilaterally. The patient has been instructed to elevate her lower extremities as much as possible, even during daytime hours. Elevation is to be to heart level, or higher. Prolonged idle sitting has been discouraged. Activity has been encouraged, but the patient's debility will limit the amount of ambulation which can be achieved. We have implemented compression to the lower extremities by means of graduated compression stockings of 15 to 20 mmHg, which the patient has been instructed to wear daily. However, following a short trial of compression stockings, the patient insists on continuing the use of Tubigrip's, double layer. It appears as though this has been effective, and the patient will be permitted her preferred form of compression (Tubigrip's). The patient has been instructed to optimize her nutritional intake, and to optimize her glycemic control. She has had a battery of diagnostic laboratory tests recently in [place], and those lab results have been requested. 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 The patient's most recent wound cultures, obtained on October 10, 2021, were negative for aerobic and anaerobic bacterial growth. We are to continue the use of collagen hydrogel, which will be applied topically on a daily basis. The patient is to return in 1 week for reassessment. Her wound appears to be nearly healed. Once again, the patient has been encouraged to elevate her lower extremities and to avoid prolonged idle sitting. Home health nursing staff and personal friends are involved in the patient's home care. The patient is to follow-up in 1 week for reevaluation. Total time: 28 minutes
[2021-11-21 10:48] VITALS: BP 136/54; PULSE 78; RESP 20; TEMP 36.8; BMI 33.8
--- NOTE | 2021-11-21 11:26 | PCM.WC.HP ---
History of Present Illness Date of Service: 11/21/21 Chief Complaint: Puncture wound, left pretibial area History of Wound: This is an 86-year-old obese female with multiple pre-existing medical problems. Approximately 1 month prior to presentation the patient suffered a traumatic injury on the left pretibial area as result of impacting her rocking chair on September 10, 2021. She sustained a wound on the left pretibial area, and presented to the emergency department at [facility] in [place], [place]. In the emergency room, sutures were placed, and the patient was discharged. Her course thereafter has been somewhat fraught with complications. Approximately 2 weeks following her injury, the traumatic wound dehisced. The initial sutures which had been placed were absorbable. The patient has developed cellulitis in the area and has been treated with 2 courses of oral antibiotics, including doxycycline and cephalexin. She is also spent 2 days in the hospital in [place] in treatment for her cellulitis, with MRSA having been identified. The patient sleeps flat at night. However, during the daytime she is not very active. She does not ambulate liberally, requiring a walker for mobility. She spends a great deal of each day sitting idly. She experiences daily swelling in her lower extremities, which is most pronounced late in the day. [facility] Medical History Carotid stenosis Chronic renal insufficiency, stage IV (severe) Cirrhosis COPD (chronic obstructive pulmonary disease) Coronary artery disease Debility Dependent edema Edema of lower extremity Limited mobility Obesity (BMI 30.0-34.9) Osteopenia determined by x-ray Puncture wound of left lower extremity Secondary hyperparathyroidism Swelling of lower extremity Tonsillectomy planned Tubal ligation evaluation Home Medications All Day Allergy (cetirizine) 10 mg PO DAILY 06/09/14 [History Last Taken Unknown] Augmented Betamethasone Lotion 1 applicatio TOPICAL DAILY 06/09/14 [History Last Taken Unknown] bupropion HCl 450 mg PO DAILY 06/09/14 [History Last Taken Unknown] cefuroxime axetil 250 mg PO BID 06/09/14 [History Last Taken Unknown] cholecalciferol (vitamin D3) 2,000 unit PO DAILY 06/09/14 [History Last Taken Unknown] clonazepam 0.5 mg PO Q8H PRN PRN 06/09/14 [History Last Taken Unknown] fluticasone propion-salmeterol [Advair Diskus] 1 puff INHALATION BID 06/09/14 [History Last Taken 06/22/14 06:30] folic acid 1 mg PO DAILY@0800 06/09/14 [History Last Taken Unknown] furosemide 40 mg PO DAILY 06/09/14 [History Last Taken Unknown] insulin glargine [Lantus Solostar U-100 Insulin] 38 units SUBCUT QHS 06/09/14 [History Last Taken Unknown] insulin glargine [Lantus Solostar U-100 Insulin] 42 units SUBCUT BREAKFAST 06/09/14 [History Last Taken Unknown] insulin lispro [Humalog U-100 Insulin] 2 - 30 unit SQ TID 06/09/14 [History Last Taken Unknown] losartan 100 mg PO DAILY 06/09/14 [History Last Taken Unknown] methotrexate sodium 7.5 mg PO FOSTER 06/09/14 [History Last Taken Unknown] metoprolol tartrate 25 mg PO DAILY 06/09/14 [History Last Taken 06/22/14 06:30] potassium chloride [Klor-Con M20] 20 meq PO BID 06/09/14 [History Last Taken Unknown] pravastatin 80 mg PO DAILY 06/09/14 [History Last Taken Unknown] zolpidem 5 mg PO QHS PRN 06/09/14 [History Last Taken Unknown] aspirin 81 mg PO DAILY@0800 #1 06/25/14 [Rx Last Taken 06/17/14 21:00] diphenhydramine HCl [Banophen] 50 mg PO Q6H PRN PRN #30 capsule 06/25/14 [Rx Last Taken Unknown] rivaroxaban [Xarelto] 10 mg PO DAILY@0600 #10 tablet 06/25/14 [Rx Last Taken Unknown] tramadol 50 mg PO Q4H PRN PRN #80 tablet 06/25/14 [Rx Last Taken Unknown] acetaminophen 650 mg tablet,extended release 650 mg PO Q12H 12/01/20 [History Last Taken Unknown] albuterol sulfate 2.5 mg INHALATION Q6H 12/01/20 [History Last Taken Unknown] docusate calcium 240 mg capsule 240 mg PO DAILY 12/01/20 [History Last Taken Unknown] flash glucose sensor #1 ea 12/01/20 [History Last Taken Unknown] montelukast 10 mg tablet 10 mg PO DAILY 12/01/20 [History Last Taken Unknown] nifedipine 60 mg tablet,extended release 60 mg PO DAILY 12/01/20 [History Last Taken Unknown] nystatin 100,000 unit/gram topical cream 1 applic TOPICAL BID 12/01/20 [History Last Taken Unknown] pantoprazole 20 mg PO DAILY 10/10/21 [History Last Taken Unknown] potassium bicarb and chloride [Pot Bicarb-Pot Chloride(25mEq)] ea 10/10/21 [History Last Taken Unknown] Allergy/AdvReac Type Severity Reaction Status Date / Time adhesive Allergy Rash Verified 12/01/20 13:51 iodine Allergy Swelling Verified 12/01/20 13:51 latex Allergy Rash Verified 12/01/20 13:51 hydrocodone bitartrate AdvReac Nausea Verified 12/01/20 13:51 [From Vicodin] metformin AdvReac Other Verified 12/01/20 13:51 morphine AdvReac Itching Verified 12/01/20 13:51 Sulfa (Sulfonamide AdvReac Nausea/Vom/ Verified 12/01/20 13:51 Antibiotics) Diarrhea Family History Other Asthma CVA (cerebral vascular accident) Colon cancer Diabetes Heart disease High cholesterol Hypertension Kidney disease Kidney stones Lupus Osteoporosis Seizures Skin cancer Thyroid disorder Ulcer Surgical History H/O knee surgery Surgical History no surgical history Social History Smoking Status: Former smoker Vital Signs Vital Signs Vital Signs: 11/21/21 10:48 Temperature 98.3 F Temperature Source Temporal Pulse Rate 78 Respiratory Rate 20 H Blood Pressure 136/54 H Blood Pressure Mean 81 Blood Pressure Source Monitor Weight Weight: 191 lb Body Mass Index (BMI) 33.8 Physical Exam Const alert, oriented x3, no apparent distress and well nourished General Appearance: cooperative and well developed Orientation / Consciousness: awake, oriented to person, oriented to place and oriented to time HEENT normocephalic and head/scalp atraumatic Head and Scalp: normal to inspection, normocephalic and atraumatic External Ear: external ears normal Eyes PERRL and EOMs intact bilaterally General Eye: normal appearance of both eyes Resp normal respiratory effort, normal air movement, no retractions and no use of accessory muscles Effort and Inspection: able to speak in complete sentences Extremity no calf tenderness General Extremity: Negative for clubbing or cyanosis Skin Wound Narrative: No significant swelling is noted in the patient's left lower extremity. The puncture wound on the left pretibial area appears to be completely healed and epithelialized. Neuro oriented x3, CN's II-XII intact bilaterally, moves all extremities and no focal motor deficits Sensorium / Orientation: awake, alert, oriented to person, oriented to place and oriented to time Psych Appearance: grossly normal and appropriate Attitude: calm Activity / Motor Behavior: appropriate eye contact Speech: normal speech Mood & Affect: euthymic mood Thought Process: normal thought process Thought Content: normal thought content Attention / Concentration: attention grossly intact Debridement Note Debridement Note No debridement was completed: No debridement was completed today (The patient's left pretibial wound is completely healed and epithelialized.) Post-Debridement Measurements and Additional Note: Post-Debridement Measurements/Treatment - Nurse 1 - General Ulcer Assessment Start: 11/07/21 11:06 Freq: Status: Active Protocol: JOESPH.HUMAIRA Activity Type Activity Date Activity User E-Sign Co-Sign Detail Recorded Client Recorded Date Recorded By Document 11/07/21 11:06 AK [id number] 11/07/21 11:10 AK Document 11/14/21 11:00 MW [id number] 11/14/21 11:10 MW Document 11/21/21 10:48 DL [id number] 11/21/21 10:52 DL 11/07/21 11/14/21 11/21/21 11:06 11:00 10:48 - Today's Visit Information Type of service Follow-up Visit Follow-up Visit Follow-up Visit (Physician/BREAKFAST BAR ATTENDANT (Physician/BREAKFAST BAR ATTENDANT (Physician/BREAKFAST BAR ATTENDANT ) ) ) Arrival Mode Ambulatory, Ambulatory, Ambulatory, Walker Walker Walker Transfer Assistance None None Accompanied by nephew Patient Identification Verified (Name & Yes Yes Yes ) Patient Requires Transmission-Based No No No Precautions Safety Precautions NA Fall Prevention Finger Stick Blood Sugar(mg/dl) (if 131 138 indicated): Blood Sugar Stated by Stated by Patient Patient Height and Weight Body Mass Index (BMI) 33.8 33.8 33.8 BMI Classification Obese Obese Obese Vital Signs Temperature (97.8 F-99.1 F) 97.6 F L 97.4 F L 98.3 F Temperature Source Temporal Temporal Temporal Pulse Rate (60-100) 55 L 59 L 78 Pulse Location Monitor Monitor Monitor Respiratory Rate (12-18) 18 20 H Respiratory rate source Observation Observation Oxygen Delivery Method Room Air Blood Pressure (90/60-120/80) 149/52 H 130/50 H 136/54 H Blood Pressure Mean 84 76 81 Source Monitor Monitor Position Sitting Blood Pressure Location Left Arm History Since Last Visit- (Skip if this is Patient's initial visit) Have you changed medications since your No No No last visit? Any new allergies or adverse reactions No No No Had a fall/change in ADL's that may No No No increase risk of falls Signs or symptoms of abuse and/or No No No neglect since last visit Have you been in the hospital since your No No No last visit? Has dressing in place as prescribed Yes Yes Yes Has compression in place as prescribed Yes Yes Yes Has offloadiing in place as prescribed N/A N/A N/A Experienced any changes in pain level or No No No management Left Footwear Regular Shoe Regular Shoe Right Footwear Regular Shoe Regular Shoe Pain Scale: 0-10 Numeric Is Patient Pain Free? Yes Yes Yes WC - Nurse 1 - General Ulcer Measurement Start: 11/07/21 11:06 Freq: Status: Active Protocol: Activity Type Activity Date Activity User E-Sign Co-Sign Detail Recorded Client Recorded Date Recorded By Document 11/07/21 11:06 AK [id number] 11/07/21 11:10 AK Document 11/14/21 11:00 MW [id number] 11/14/21 11:10 MW Document 11/21/21 10:48 DL [id number] 11/21/21 10:52 DL 11/07/21 11/14/21 11/21/21 11:06 11:00 10:48 Wound Center Nurse 1 #1 Left mary -Combined with other wound No No -Current Size (cm) - Length 1 0.1 0.1 -Current Size (cm) - Width 0.2 0.1 0.1 -Current Size (cm) - Depth 0.2 0.1 0.1 -Total Square Cm 0.2 0.01 0.01 -Date of Last Picture (Recall this 11/14/21 field) -Photo Taken No Yes No -Epithelialization Large 67-100% -Tunneling No No -Undermining/Tunneling No No -Circular Undermining No No -Change in Wound Grade/Stage No -Exudate Amt Medium None Present None Present -Exudate Type Serosanguineous -Wound Margin Distinct, Flat & Intact Outline Attached -Granulation Amt Medium (34-66%) None Present (0 Large (67-100%) %) -Granulation Quality [place] N/A Pale,[place] -Slough/Fibrin Yes No -Necrosis Amt Medium (34-66%) None Present (0 Small (1-33%) %) -Necrotic Tissue Type Adherent Slough Adherent Slough -Structure Exposed N/A N/A -Texture (Sis-wound Skin Appearance) No Abnormality, Assessed, Scarring Assessed Localized Edema ,Scarring -Moisture (Sis-wound Skin Appearance) No Abnormality, No Abnormality, Dry/Scaly Assessed Assessed -Color (Sis-wound Skin Appearance) No Abnormality, No Abnormality, No Abnormality, Assessed Assessed Hemosiderin Staining -Temperature (Sis-wound Skin No Abnormality No Abnormality Appearance) (Pt Warm) (Pt Warm) -Tenderness on Palpation (Sis-wound No No Skin Appearance) -Ulcer Cleansing Rinsed/ Rinsed/ Irrigated with Irrigated with Saline Saline -Foul Odor after Cleansing No No -Anesthetic Used 4% Lidocaine 5% Lidocaine Solution Gel Lower Limb Edema Present No Yes Right Calf (cm) 39.5 Right Ankle (cm) 23.5 Left Calf (cm) 38.5 34.5 32.5 Left Ankle (cm) 23 23.0 22 WC - Nurse 2 - General Ulcer CM Notes Start: 11/07/21 11:06 Freq: Status: Active Protocol: Activity Type Activity Date Activity User E-Sign Co-Sign Detail Recorded Client Recorded Date Recorded By Document 11/07/21 11:23 PL [id number] 11/07/21 11:24 PL Document 11/14/21 12:38 PL [id number] 11/14/21 12:39 PL 11/07/21 11/14/21 11:23 12:38 Wound Center Nurse 2 #1 Left mary -Time 11:18 11:34 -Correct Patient Yes Yes -Correct Side, Site, Position Yes Yes -Correct Procedure Yes Yes -Procedure Performed Yes Yes -Type of Procedure Debridement Debridement -Clinical Debridement Subcutaneous Subcutaneous -Tissue Removed Subcutaneous Subcutaneous -Post Debridement (cm) - Length 1.0 0.2 -Post Debridement (cm) - Width 0.2 0.2 -Post Debridement (cm) - Depth 0.2 0.1 -Total Square (Post) (cm) 0.20 0.04 -Area of Debridement (cm) - Length 1.0 0.2 -Area of Debridement (cm) - Width 0.2 0.2 -Total Square (Area) (cm) 0.20 0.04 -Tunneling No No -Undermining/Tunneling No No -Circular Undermining No No -Wound/Ulcer Outcome Not Healed Not Healed -Ulcer Cleansing Rinsed/ Rinsed/ Irrigated with Irrigated with Saline Saline -Foul Odor after Cleansing No No -Bioengineered Tissue No No -Bleeding Controlled with Pressure Pressure -Treatment Response Procedure Procedure Tolerated Well Tolerated Well -Debridement - Subq, 1st 20sq cm Yes Yes Pain Scale: 0-10 Numeric Is Patient Pain Free? Yes Yes - Nurse 3 - General Ulcer D/C NN Start: 11/07/21 11:06 Freq: Status: Active Protocol: Activity Type Activity Date Activity User E-Sign Co-Sign Detail Recorded Client Recorded Date Recorded By Document 11/07/21 11:32 DL [id number] 11/07/21 11:34 DL Document 11/14/21 11:45 JF [id number] 11/14/21 11:47 JF Document 11/21/21 11:12 KR [id number] 11/21/21 11:13 KR 11/07/21 11/14/21 11/21/21 11:32 11:45 11:12 Wound Care Nurse 3 #1 Left mary -Ulcer Cleansing Rinsed/ Rinsed/ Irrigated with Irrigated with Saline Saline -Foul Odor after Cleansing No No -Primary Dressing Applied C Hydrogel ($) -Other Dressing hydrogel -Primary Dressing Covered/Secured with Dry Gauze,Dry Dry Gauze, Gauze & Roll Secured with Gauze,Secured Tape with Tape Right -Tubular Bandage Double Layer -Size of Tubigrip Used Size E -Size E ($) 2 Left -Lotion applied to leg before Yes compression wrap -Tubular Bandage Single Layer Double Layer -Size of Tubigrip Used Size D Size E -Size D ($) 0 -Size E ($) 2 Treatment Response Procedure Tolerated Well Pain Scale: 0-10 Numeric Is Patient Pain Free? Yes Yes Yes WC - Visit Discharge Discharge Condition Stable Stable Stable Ambulatory Status Ambulatory Ambulatory, Ambulatory Walker Transportation Private Auto Private Auto Private Auto Accompanied by nephew son Medication Reconcilliation completed & Yes provided to patient/care provider Clinical Summary of Care Provided Yes Notes: Pt refused tubigrip today Facility Type Home Health Orders Sent Yes Assessment/Plan Assessment/Plan (1) Puncture wound of left lower extremity: CODE(S): S81.832A - Puncture wound without foreign body, left lower leg, initial encounter (2) Edema of lower extremity: CODE(S): R60.0 - Localized edema (3) Swelling of lower extremity: CODE(S): M79.89 - Other specified soft tissue disorders (4) Debility: CODE(S): R53.81 - Other malaise (5) Limited mobility: CODE(S): Z74.09 - Other reduced mobility (6) Carotid stenosis: CODE(S): I65.29 - Occlusion and stenosis of unspecified carotid artery (7) Chronic renal insufficiency, stage IV (severe): CODE(S): N18.4 - Chronic kidney disease, stage 4 (severe) (8) Dependent edema: CODE(S): R60.9 - Edema, unspecified (9) COPD (chronic obstructive pulmonary disease): CODE(S): J44.9 - Chronic obstructive pulmonary disease, unspecified (10) Coronary artery disease: CODE(S): I25.10 - Atherosclerotic heart disease of [place] coronary artery without angina pectoris (11) Obesity (BMI 30.0-34.9): CODE(S): E66.9 - Obesity, unspecified (12) Cirrhosis: CODE(S): K74.60 - Unspecified cirrhosis of liver QUALIFIERS: Hepatic cirrhosis type: unspecified hepatic cirrhosis Ascites presence: unspecified Qualified Code(s): K74.60 - Unspecified cirrhosis of liver (13) Osteopenia determined by x-ray: CODE(S): M85.80 - Other specified disorders of bone density and structure, unspecified site (14) Secondary hyperparathyroidism: CODE(S): N25.81 - Secondary hyperparathyroidism of renal origin (15) Hypertension: CODE(S): I10 - Essential (primary) hypertension (16) Psoriasis: CODE(S): L40.9 - Psoriasis, unspecified (17) Hyperlipidemia: CODE(S): E78.5 - Hyperlipidemia, unspecified (18) Arthritis: CODE(S): M19.90 - Unspecified osteoarthritis, unspecified site (19) Diabetes mellitus, type II: CODE(S): E11.9 - Type 2 diabetes mellitus without complications (20) Morbid obesity with BMI of 40.0-44.9, adult: CODE(S): E66.01 - Morbid (severe) obesity due to excess calories; Z68.41 - Body mass index [BMI] 40.0-44.9, adult (21) Asthma: CODE(S): J45.909 - Unspecified asthma, uncomplicated PLAN: This is an 86-year-old female who presented as result of a traumatic wound on the left pretibial area. This resulted due to trauma from a rocking chair approximately 1 month prior to presentation. At the time of the initial injury, the patient was evaluated in the emergency department, where stitches were placed. The absorbable sutures which were used for closure subsequently dissolved, and the traumatic wound has dehisced. She presented at our facility with an open wound at the site. She has had several episodes of cellulitis, with MRSA having been identified by wound culture. She has been treated by means of oral cephalexin and doxycycline. Her recent wound culture, obtained on October 10, 2021, was negative for aerobic and anaerobic bacteria growth. She is relatively immobile, limited in ambulation, and requires a walker for mobility. She sleeps on a flat mattress at night, but spends long hours each day in a sitting position. As result, the patient experiences swelling in both lower extremities, which is most severe late each day. At her initial presentation, swelling and edema were noted, with a generalized inflammatory erythema noted in the gaiter areas bilaterally. The patient has been instructed to elevate her lower extremities as much as possible, even during daytime hours. Elevation is to be to heart level, or higher. Prolonged idle sitting has been discouraged. Activity has been encouraged, but the patient's debility will limit the amount of ambulation which can be achieved. We have implemented compression to the lower extremities by means of graduated compression stockings of 15 to 20 mmHg, which the patient has been instructed to wear daily. However, following a short trial of compression stockings, the patient insists on continuing the use of Tubigrip's, double layer. It appears as though this has been effective, and the patient will be permitted her preferred form of compression (Tubigrip's). The patient has been instructed to optimize her nutritional intake, and to optimize her glycemic control. The patient's left pretibial wound is now completely healed and epithelialized. Therefore, she is to be discharged, and will follow-up henceforth on an as-needed basis. She has been strongly encouraged to continue with leg elevation, compression, avoidance of prolonged idle sitting, and activity is much as possible. Weight loss has also been recommended. Total time: 28 minutes
== END 2021-11-21 14:57 | disposition home or self-care (01) ==
LOC: WC 10:45
PROVIDERS: PCP Physician Assistant; Referring Provider Surgery; Visit Provider Surgery
DX: S81.832A Puncture wound without foreign body, left lower leg, initial encounter (principal); K74.60 Unspecified cirrhosis of liver; J44.9 Chronic obstructive pulmonary disease, unspecified; E11.22 Type 2 diabetes mellitus with diabetic chronic kidney disease; N18.4 Chronic kidney disease, stage 4 (severe); E66.01 Morbid (severe) obesity due to excess calories; N25.81 Secondary hyperparathyroidism of renal origin; Z79.4 Long term (current) use of insulin; I12.9 Hypertensive chronic kidney disease with stage 1 through stage 4 chronic kidney disease, or unspecified chronic kidney disease; I65.29 Occlusion and stenosis of unspecified carotid artery; R53.81 Other malaise; M19.90 Unspecified osteoarthritis, unspecified site; R60.0 Localized edema; L40.9 Psoriasis, unspecified; Z86.14 Personal history of Methicillin resistant Staphylococcus aureus infection; E78.5 Hyperlipidemia, unspecified; Z87.891 Personal history of nicotine dependence; I25.10 Atherosclerotic heart disease of native coronary artery without angina pectoris; Z74.09 Other reduced mobility; M79.89 Other specified soft tissue disorders; Z68.33 Body mass index [BMI] 33.0-33.9, adult; W26.8XXA Contact with other sharp object(s), not elsewhere classified, initial encounter; Z79.899 Other long term (current) drug therapy; Z79.01 Long term (current) use of anticoagulants; Z79.82 Long term (current) use of aspirin
CPT/HCPCS: 11042; 99213; G0463